=== PATIENT | female | born 2000 | race Caucasian/White ===

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

== ENCOUNTER 2023-02-18 11:36 | Outpatient (CLI) | payer OTHER, SELFPAY ==
[2023-02-18] MEDS: Inhaler, Assist Device 1 EACH MC (15:46)
[2023-02-18] MEDS: Albuterol HFA 18 GM 200 PUFF INH IH (15:46)
--- NOTE | 2023-02-26 14:17 | W.PFT ---
Date of service: 02/18/23 Time of Service: 14:44 Pulmonary Function Test Result Indications: Asthma Interpretation Spirometry: There is no airflow limitation. No bronchodilator response. Lung Volumes: There is air trapping and hyperinflation. Diffusion Capacity: Normal diffusion Airway Pressure: Normal airways resistance Impression No airflow obstruction but significant air trapping. This can be seen in asthma. Clinical Correlation therefore is recommended.
== END 2023-02-18 11:37 | disposition home or self-care (01) ==
PROVIDERS: Visit Provider Nurse Practitioner Family
DX: J45.30 Mild persistent asthma, uncomplicated (principal)
CPT/HCPCS: 94060; 94726; 94729

== ENCOUNTER 2023-12-27 11:03 | Outpatient (REF) | payer MEDICAID, SELFPAY ==
[2023-12-28 12:51] LABS: Chlamydia Result Negative (Negative); GC Result Negative (Negative)
== END 2023-12-27 11:04 | disposition home or self-care (01) ==
LOC: LBN 11:03
PROVIDERS: PCP Nurse Practitioner Women's Health; Visit Provider Nurse Practitioner Women's Health
DX: Z11.3 Encounter for screening for infections with a predominantly sexual mode of transmission (principal)
CPT/HCPCS: 87491; 87591

== ENCOUNTER 2024-01-11 12:47 | Emergency (ER) | payer MEDICAID, SELFPAY ==
[2024-01-11 12:58] VITALS: BP 117/88; PULSE 130; RESP 20; TEMP 37.3; O2SAT 99
[2024-01-11 13:01] VITALS: BP 117/88; PULSE 130; RESP 20; TEMP 37.3; O2SAT 99
[2024-01-11 13:46] VITALS: BP 115/53; PULSE 122; RESP 16; TEMP 38.6; O2SAT 100
[2024-01-11] MEDS: Ketorolac 30 MG/ML VIAL IM (13:59)
--- NOTE | 2024-01-11 14:02 | ED.GENADUL_ITS ---
Discharge Plan Disposition Patient Disposition: Home Condition: Good Discharge Details Clinical Impression: Pain in throat Primary Care Provider: Concepcion Mcnamara NP ED Provider: Tramaine Rincon Home Meds and New Rx's Prescriptions: New clindamycin HCl 150 mg capsule 450 mg PO QID 7 Days Qty: 84 0RF No Action albuterol sulfate 90 mcg/actuation HFA aerosol inhaler 2 puff inhalation Q4H PRN (Reason: shortness of breath or wheezing) Qty: 8.5 1RF (DME) Aerochamber MV Spacer See Rx Instructions .ROUTE .MEDSUPPLY Qty: 1 0RF Rx Instructions: As directed Discharge Instructions Instructions: Pharyngitis (ED) Additional Instructions: At this time your strep test is returned negative. We are pending a repeat culture. Gonorrhea, chlamydia, and mono are all negative. I am concerned that there is still a bacterial etiology causing the throat pain. There is no other abnormality that I can see at this time. Please take the antibiotic clindamycin as directed. Please take Tylenol Motrin as needed for pain. Make sure that you are taking a probiotic pill while on the antibiotic to prevent any diarrhea. If your symptoms are not improving over the next 72 hours, please return for reassessment. If you notice any worsening of your symptoms, or any new symptoms such as vomiting, diarrhea, fever, chills, shortness of breath, chest pain, numbness, weakness, or fainting , please return immediately to the emergency department for reevaluation. Please follow up with your primary care provider as soon as possible for reassessment and reevaluation. As always, it was a pleasure participating in your medical care today. Referrals: Concepcion Mcnamara NP [Primary Care Provider] - [facility] General Date/Time Provider Initiated Documentation: 01/11/24 13:04 . [facility] Narrative: This is a pleasant 23-year-old female with a past medical history of right bundle branch block, asthma, who presents today with sore throat. On the 15 of this month which was 2 weeks ago she had sore throat. She was seen and assessed at that time at an urgent care, amoxicillin was ordered, and she was treated with that. Her strep test at that time was negative, the strep culture was negative, gonorrhea and Chlamydia were negative, mono was negative. Patient states that she felt improved with the antibiotic, but as soon as that ended her pain returned. She also developed a mild fever with a Tmax of 102. Symptoms did slightly improve with NSAID therapy. She had mild pain with swallowing and drinking, but no difficulty doing this. No vomiting or diarrhea. No cough, no chest pain or urinary discomfort. No other complaints at this time. Patient does state that she is sexually active with her significant other who is male. She does perform oral sex. However she denies any personal history of STDs. She also states that her partner has not had any STDs. No other modifying factors. Related Data Home Medications Medication Instructions Recorded Confirmed inhalational spacing device #1 ea 12/08/19 01/11/24 (Aerochamber MV spacer) albuterol sulfate 90 mcg/actuation 2 puff inhalation Q4H PRN 07/16/22 01/11/24 aerosol inhaler shortness of breath or wheezing #8.5 grams clindamycin HCl 150 mg capsule 450 mg (3 x 150 mg) PO QID 7 days 01/11/24 #84 caps Previous Rx's Medication Instructions Recorded inhalational spacing device #1 ea 12/08/19 (Aerochamber MV spacer) albuterol sulfate 90 mcg/actuation 2 puff inhalation Q4H PRN 07/16/22 aerosol inhaler shortness of breath or wheezing #8.5 grams clindamycin HCl 150 mg capsule 450 mg (3 x 150 mg) PO QID 7 days 01/11/24 #84 caps Allergies Allergy/AdvReac Type Severity Reaction Status Date / Time lactose AdvReac Intermediate Other (See Verified 01/11/24 13:45 Comment) General Stated Complaint: Sorethroat ZAY: 3 Review of Systems All systems reviewed & are unremarkable except as noted in HPI and below Exam Narrative Exam Narrative: 1.Const: Well-nourished, Well-developed, appearing stated age 2.Eyes: PERRL, no conjunctival injection, and symmetrical lids. 3.ENT: Atraumatic external nose and ears. Moist MM. Neck: Symmetric, trachea midline, No thyromegaly. Tympanic membranes are fernandez and pearly bilaterally. Patient states that the worst pain is on the left however left tonsil is notably unremarkable, no exudate erythema vesicles or other abnormality. Right tonsil demonstrates minimal erythema, no enlargement. Few small purulent areas on the tonsil, no tonsillitis. No peritonsillar abscess on palpation. Uvula is midline. No evidence of hoarse voice. No tenderness on midline palpation of the cricoid cartilage or the thyroid cartilage. No mass or tracheal tenderness. No evidence of Ludewig's angina. Patient demonstrates good movement of cervical neck. There is no nuchal rigidity, no nuchal tenderness. Patient is able to flex the neck without any difficulty or significant pain. Negative Kernig's and Brudzinski sign. 4.CVS: +S1/S2, No murmurs or gallops. Peripheral pulses 2+ and equal in all extremities. Brisk capillary refill in all extremities. 5.RESP: Unlabored respiratory effort. Clear to auscultation bilaterally. No wheezes rales or rhonchi 6.GI: Soft, Nontender/Nondistended, No hepatosplenomegaly. No guarding or rebound. 7.MSK: Normocephalic/Atraumatic, Extremities w/o deformity or ttp No cyanosis or clubbing, Normal movement of all extremities 8.Skin: Warm, Dry. No rashes or lesions. 9.Neuro: inbound customer service representative II-XII grossly intact. Sensation grossly intact, no focal neurologic deficits. 10.Psych: (AAO) x3. Appropriate mood and affect Course Vital Signs Vital signs: Vital Signs Temperature 37.3 C 01/11/24 12:58 Pulse 130 H 01/11/24 12:58 Respiratory Rate 20 01/11/24 12:58 Blood Pressure 117/88 01/11/24 12:58 Pulse Oximetry 99 01/11/24 12:58 Temperature 38.6 C H 01/11/24 13:46 Temperature Source Oral 01/11/24 13:46 Pulse 122 H 01/11/24 13:46 Pulse Rhythm Regular 01/11/24 13:46 Pulse Strength Normal 01/11/24 13:46 Respiratory Rate 16 01/11/24 13:46 Respiratory Effort Normal 01/11/24 13:46 Respiratory Depth Normal 01/11/24 13:46 Respiratory Pattern Normal 01/11/24 13:46 Blood Pressure 115/53 L 01/11/24 13:46 Blood Pressure Mean 73 01/11/24 13:46 Blood Pressure Position Supine 01/11/24 13:46 Pulse Oximetry 100 01/11/24 13:46 Oxygen Delivery Method Room Air 01/11/24 13:46 Oxygen Flow Rate 0 01/11/24 13:46 Pain Level 7 01/11/24 13:46 Lab/Test Results Lab/Test Results: 01/11/24 13:58 Tonsil - Not Specified Group A Streptococcus Culture - Pending POC Strep Test-JIMY(Rapid) Start: 01/11/24 13:09 Freq: .Rapid Strep Test Status: Active Protocol: Document 01/11/24 13:43 OBIE (Rec: 01/11/24 13:43 N.[facility] [id number]) Strep test-JIMY(Rapid)-POC POC-Strep test-JIMY (Rapid) Negative POC Strep Test-JIMY(Rapid) Start: 01/11/24 13:10 Freq: .Rapid Strep Test Status: Active Protocol: Document 01/11/24 13:43 OBIE (Rec: 01/11/24 13:43 N.[facility] [place] [id number]) Strep test-JIMY(Rapid)-POC POC-Strep test-JIMY (Rapid) Negative POC-Strep test-JIMY (Rapid) Negative Medical Decision Making This is a pleasant 23-year-old female with a past medical history of right bundle branch block, asthma, who presents today with sore throat. On the 15th of this month which was 2 weeks ago she had sore throat. She was seen and assessed at that time at an urgent care, amoxicillin was ordered, and she was treated with that. Her strep test at that time was negative, the strep culture was negative, gonorrhea and Chlamydia were negative, mono was negative. Patient states that she felt improved with the antibiotic, but as soon as that ended her pain returned. She also developed a mild fever with a Tmax of 102. Symptoms did slightly improve with NSAID therapy. She had mild pain with swallowing and drinking, but no difficulty doing this. No vomiting or diarrhea. No cough, no chest pain or urinary discomfort. No other complaints at this time. Patient does state that she is sexually active with her significant other who is male. She does perform oral sex. However she denies any personal history of STDs. She also states that her partner has not had any STDs. No other modifying factors. Exam demonstrates tympanic membranes are fernandez and pearly bilaterally. Patient states that the worst pain is on the left however left tonsil is notably unremarkable, no exudate erythema vesicles or other abnormality. Right tonsil demonstrates minimal erythema, no enlargement. Few small purulent areas on the tonsil, no tonsillitis. No peritonsillar abscess on palpation. Uvula is midline. No evidence of hoarse voice. No tenderness on midline palpation of the cricoid cartilage or the thyroid cartilage. No mass or tracheal tenderness. No evidence of Ludewig's angina. Strep test was performed and is also negative again. There is no vesicles to suggest herpes. Previous testing appeared very appropriate. No mass or other abnormality to suggest need for CT imaging at this time. Differential includes atypical bacterial agent that caused the initial and continued infection especially considering the mild improvement with antibiotics, versus secondary infection happened after initial check. Symptoms do not appear consistent with purulent gonorrhea tonsillitis or purulent chlamydial tonsillitis. Again no evidence to suggest herpes. No evidence of Ludewig's angina. I did discuss with the patient and offer IV and fluids, but the patient has declined at this time. Patient appears notably stable otherwise. No evidence of cancer or mass otherwise or other concerning abnormality, and no signs of septic shock I do feel the patient is stable for discharge with close follow-up. She will drink fluids at home. We will give Toradol here prior to discharge. Will start her on a new antibiotic prescription for clindamycin which will give broad oral coverage for potential causative agent causing the tonsillar irritation. However I did recommend that if she does not have improvement of her symptoms after 72 hours then she should return for immediate reassessment and further workup and potential IV assessment. No evidence at this time to suggest herpangina/rtgt-dzko-mce-mouth. Discussed red flags which to return. I have extensively reviewed the treatment plan and discharge instructions with the patient and their family. I have addressed all patient concerns at this time. The patient and family was made aware of what symptoms to monitor for that would warrant a return to the emergency department. Discussed the plan with the patient and family, they demonstrate verbal understanding and agreement with our assessment and plan at this time. The documentation in this chart was dictated using [employer] dictation software. Please excuse any dictation errors. Quality:SDOH Health Related Social Needs: No Data to Display PFSH All Active Problems Pain in throat (Acute) Abdominal discomfort (Acute) Anxiety (Chronic) Seasonal and perennial allergic rhinitis (Acute) Mild intermittent asthma (Chronic) Right bundle branch block (RBBB) determined by electrocardiography (Chronic) had eval with [facility]- no medication, no activity restriction; follow up as needed Scoliosis (Chronic 08/25/17) Seen by uvm 08/29. Minimal risk of progression. f/u in 1 year Surgical History Plica, left knee Family History Father Essential hypertension just had stent placed Asthma untreated Mother Alcohol abuse Depression Other Lupus (systemic lupus erythematosus) MGaunt Diabetes MGaunt, MGGM Essential hypertension PGF Depression MGM, MGaunt Heart disease PGF, MGF Neoplasm both sides Brother Depression has symptoms of bipolar but never dx Other Healthy adult on routine physical examination Social History Smoking/Tobacco Use Status: Never Smoking risk assessment performed?: Yes Alcohol Intake: never Drug use: Never Substance use type: does not use Household members: family Education Level: college Details: Sophomore [employer] 2021 studying Visual Arts and living at home Do you need help understanding health information?: Never Pets and animals: Yes Pets and animals: cat(s) and farm animals Sexually active: Yes Do you think of yourself as: straight/heterosexual Current gender identity: female Seatbelt use: always Helmet use: Yes Drive intox or ride w/intox flatbed driver: No Do you feel safe at home: Yes Do you feel safe in your relationship?: Yes Additional Social history: Working at [employer] Female Reproductive History Menstrual control method: none (Patient stats she is not sexually active ) History History 0 Para Hx # Term Pregnancies Multiple births Hx # Pregnancies Ectopic pregnancies AB induced Hx Number of Living Children AB spontaneous PAWSS Have you Been Recently Intoxicated or Drunk Within the Last 30 days?: No Have you Ever Experienced Previous Episodes of Alcohol Withdrawal?: No Have you ever Experienced Withdrawal Seizures?: No Have you ever Experienced Delirium Tremens(DT)s?: No Have you ever undergone Alcohol Rehabilitation Treatment (i.e, inpt ot outpatient treatment programs)?: No Have you ever Experienced Blackouts?: No Have you ever Combined Alcohol with other Downers within the last 90 days?: No Have you ever Combined Alcohol with any other Substance of Abuse during the last 90 days?: No Positive Blood Alcohol level on Presentation? [PCS.BAL]: No Evidence of Increased Autonomic Activity (i.e. HR>120, tremor, sweating, agitation, nausea)?: No Result: 0
[2024-01-11 14:26] VITALS: PULSE 114; RESP 16; TEMP 38.6; O2SAT 100
== END 2024-01-11 14:31 | disposition home or self-care (01) ==
PROVIDERS: Emergency Provider Student in an Organized Health Care Education/Training Program; PCP Nurse Practitioner Women's Health
DX: J02.9 Acute pharyngitis, unspecified (principal)
CPT/HCPCS: 87880; 99283; 87081; J1885

== ENCOUNTER 2024-01-11 14:43 | Outpatient (REF) | payer MEDICAID, SELFPAY ==
[2024-01-12 14:14] LABS: Chlamydia Result Negative (Negative); GC Result Negative (Negative)
== END 2024-01-11 14:44 | disposition home or self-care (01) ==
LOC: LBN 14:43
PROVIDERS: PCP Nurse Practitioner Women's Health; Visit Provider Physician Assistant
DX: J02.9 Acute pharyngitis, unspecified (principal)
CPT/HCPCS: 87491; 87591; 87070

== ENCOUNTER 2024-01-24 09:10 | Outpatient (REF) | payer MEDICAID, SELFPAY ==
--- NOTE | 2024-01-24 08:50 | PAPFT_PTH ---
PATIENT: Miryam Lozano LOC: [facility] U#:[id number] AGE/SX: 23/F ROOM: RE01/24/[address]: Concepcion Mcnamara NP : 2000 BED: DIS: 01/24/2024 SPEC #: [id number] RECD: 01/24/24 13:09 STATUS: EDWIN SAUNDERS #: [id number] KADI: 01/24/24 08:[address]: Concepcion Mcnamara NP DEPT: [facility] Cytology RECD BY: Annette Barfield Tissues: 1 - CX/ENDOCX FOR PAP SMEARS Procedures: PAP THIN PREP/[facility] Screening Comments: [id number] (CHLAMYDIA/GC)
[2024-01-25 15:37] LABS: Chlamydia Result Negative (Negative); GC Result Negative (Negative)
== END 2024-01-24 09:11 | disposition home or self-care (01) ==
LOC: LBN 09:10
PROVIDERS: PCP Nurse Practitioner Women's Health; Visit Provider Nurse Practitioner Women's Health
DX: Z12.4 Encounter for screening for malignant neoplasm of cervix (principal)
CPT/HCPCS: 87491; 87591; 88142

== ENCOUNTER 2024-02-10 18:17 | Outpatient (REF) | payer MEDICAID, SELFPAY ==
[2024-02-10 21:04] LABS: Abs Immature Grans 0.02 10^3/uL (0.0-0.06); Absolute Basophil Count 0.08 10^3/uL (0.0-0.2); Absolute Eosinophil Count 0.11 10^3/uL (0.0-0.7); Absolute Lymphocyte Count 1.71 10^3/uL (1.2-3.4); Absolute Monocyte Count 0.58 10^3/uL (0.1-0.8); Absolute Neutrophil Count 5.07 10^3/uL (1.2-6.7); Basophils % 1.1 %; Eosinophils % 1.5 %; HCT 37.4 % (36.0-46.0); HGB 12.7 g/dL (11.2-15.7); Immature Grans % 0.3 %; Lymphocytes % 22.6 %; MCH 28.2 pg (27.0-33.0); MCV 83 fL (80-95); MPV 10.3 fL (8.0-11.0); Monocytes % 7.7 %; Neutrophils % 66.8 %; Platelet Count 364 10^3/uL (130-400); RBC 4.51 10^6/uL (3.93-5.22); RDW 12.7 % (11.7-14.6); RDW-SD 38.7 fL; WBC 7.57 10^3/uL (4.4-10.8)
[2024-02-10 21:27] LABS: ALT 19 U/L (14-59); AST 17 U/L (15-37); Albumin 3.9 g/dL (3.4-5.0); Alkaline Phosphatase 72 U/L (46-116); BUN 10 mg/dL (7-18); Bilirubin, Total 0.6 mg/dL (0.2-1.0); CREATININE 0.9 mg/dL (0.55-1.02); Calcium 9.5 mg/dL (8.5-10.1); Chloride 103 mmol/L (98-107); Estimated GFR 93.28 (mL/min/1.73m2); Glucose 93 mg/dL (74-106); Potassium 3.9 mmol/L (3.5-5.1); Sodium 140 mmol/L (136-145); TSH (W/Ref FT4) 0.92 uIU/mL (0.36-3.74); Total Protein 7.8 g/dL (6.4-8.2)
== END 2024-02-10 18:18 | disposition home or self-care (01) ==
LOC: NCHCN 18:17
PROVIDERS: PCP Nurse Practitioner Women's Health; Visit Provider Nurse Practitioner Family
DX: J03.91 Acute recurrent tonsillitis, unspecified (principal)
CPT/HCPCS: 80053; 84443; 85025; 87070

== ENCOUNTER 2024-09-20 11:34 | Outpatient (REF) | payer MEDICAID, SELFPAY | END 2024-09-20 11:35 | disposition home or self-care (01) | LOC: LBN 11:34 | PROVIDERS: PCP Nurse Practitioner Family; Visit Provider Nurse Practitioner Family | DX: J02.9 Acute pharyngitis, unspecified (principal); R68.89 Other general symptoms and signs; J03.90 Acute tonsillitis, unspecified | CPT/HCPCS: 87070 ==

== ENCOUNTER 2024-10-20 20:25 | Outpatient (REF) | payer MEDICAID, SELFPAY ==
--- OUTSIDE RECORDS SUMMARY | 2024-10-20 20:27 | XMS_ITS | Encounter Summary ---
Author Organization [facility] Address [address] [place] [address] Care Team Providers Care Vegetable Farm Manager Name Role Phone Saumya Cardozo MD, Roxie Primary Care Provider [phone] Reason for Visit * Reason Onset Date Comments Scoliosis 02/09/2018 Encounter Details Date Type Department Care Team (Late st Contact Info) Description 02/09/2018 Orders Only [facility] - [address] [address] Garret Rankin MD [address] [facility] [place] [address] Scoliosis (and kyphoscoliosis), idiopathic (Primary Dx) Social History Tobacco Use Types Packs/Day Years Used Date Smoking Tobacco: Never Smokeless Tobacco: Never Comments Unknown Sex and Gender Information Value Date Recorded Sex Assigned at Not on file Legal Sex Female 13:35 EDT Gender Identity Not on file Sexual Orientation Not on file documented as of this encounter Functional Status * Because of a physical, mental, or emotional condition, does this person have difficulty doing errands alone such as visiting a doctor's office or shopping? Answer Date of Assessment Author No 03/08/2017 13:44 EDT documented as of this encounter Mental Status * Because of a physical, mental, or emotional condition, does this person have serious difficulty concentrating, remembering, or making decisions? Answer Entry Date Author Yes 03/08/2017 13:44 EDT documented in this encounter Plan of Treatment Not on file documented as of this encounter Procedures Procedure Name Priority Date/Time Associated Diagnosis Comments ENTIRE SPINE 1 VIEW Routine 02/18/2018 1 3:20 EDT Scoliosis (and kyphoscoliosis), idiopathic documented in this encounter Results * ENTIRE SPINE 1 VIEW (02/18/2018 13:20 EDT) Anatomical Region Laterality Modality Other 02/18/2018 13:2 0 EDT 02/18/2018 14:24 EDT Narrative 02/18/2018 14:24 EDT ENTIRE SPINE 1 VIEW ??02/18/2018 1:20 PM Signs and Symptoms/Comments: ?? M41.20-Other idiopathic scoliosis, site [id number]; scoliosis Findings: PA upright radiograph of entire spine again demonstrates S-shaped thoracolumbar scoliosis, visibly similar to the prior examination 08/29. The iliac crest apophysis is partially ossified. The hips are well formed. The lungs are clear and the heart is normal in size. IMPRESSION: Scoliosis. Procedure Note Goran Azul MD - 02/18/2018 ENTIRE SPINE 1 VIEW 02/18/2018 1:20 PM Signs and Symptoms/Comments: M41.20-Other idiopathic scoliosis, site [id number]; scoliosis Findings: PA upright radiograph of entire spine again demonstrates S-shaped thoracolumbar scoliosis, visibly similar to the prior examination 08/29. The iliac crest apophysis is partially ossified. The hips are well formed. The lungs are clear and the heart is normal in size. IMPRESSION: Scoliosis. Garret Rankin MD IMG DIAGNOSTIC IMAGING O RDERABLES Final Result documented in this encounter Visit Diagnoses Diagnosis Scoliosis (and kyphoscoliosis), idiopathic- Primary documented in this encounter Care Teams Vegetable Farm Manager Relationship Specialty Start Date End Date Roxie Kerns MD [address] [place] [address] PCP - General 03/05/17 documented as of this encounter
--- OUTSIDE RECORDS SUMMARY | 2024-10-20 20:27 | XMS_ITS | Encounter Summary ---
[place] [address] Care Team Providers Care Gang Miner Name Role Phone Roxie Kerns MD Primary Care Provider [phone] Reason for Visit * Consultation (Routine) - Closed Specialty Diagnoses / Procedures Referred By Contac t Referred To Contact Otolaryngology Diagnoses Recurrent acute tonsillitis Polyp of right nasal cavity Luisa Crain, HALL WORKER [address] [place] [address] [facility] Otolaryngology [address] [place] [id number] Referral ID Status Reason Start Date Expiration Date V isits Requested Visits Authorized [id number] Closed Consult, Test & Treat 02/21/2024 02/20/2025 1 1 Encounter Details Date Type Department Care Team (Late st Contact Info) Description 04/05/2024 11:40 AM EDT Office [place] [address] Gaby Sanchez MD [facility] [place] [address] Chronic tonsillitis Social History Tobacco Use Types Packs/Day Years Used Date Smoking Tobacco: Never Smokeless Tobacco: Never Comments:No smokers in the h ouse Sex and Gender Information Value Date Recorded Sex Assigned at Not on file Gender Identity Not on file Sexual Orientation Not on file documented as of this encounter Last Filed Vital Signs Vital Sign Reading Time Taken Comments Blood Pressure - - Pulse - - Temperature - - Respiratory Rate - - Oxygen Saturation - - Inhaled Oxygen Concentration - - Weight 59 kg (130 lb) 04/05/2024 11:57 AM EDT Height 167.6 cm (5' 6) 04/05/2024 11:57 AM EDT Body Mass Index 20.98 04/05/2024 11:57 AM EDT documented in this encounter Progress Notes * Gaby Sanchez MD - 04/05/2024 11:40 AM EDT [facility] Otolaryngology - Head and Neck Surgery Gaby Sanchez MD 04/05/24 12:09 PM [place], [place] [address] Office Patient Name: Miryam Lozano Date of : 2000 PCP: Roxie Kerns MD Chief Complaint/ History of Present Illness: Miryam Lozano is a 23 y.o. year old who was seen today at the request of Luisa Crain in consultation for recurrent tonsillitis. History was obtained from the patient as well as information from chartreview. Patient had a sick episode in December, she noted a sore throat at the time. Since then she has had 3 more episodes, all treated with antibiotics and with slow but steady improvement. Other than this time period she does not have recurrent tonsillitis or other problems with her throat. She has a h/o allergies and was on flonase and PO allergy meds. 10 point Review of Systems was normal except for pertinent positives and negatives included in the History of Present Illness. Past Medical and Surgical History Patient Active Problem List Diagnosis Code Viral warts B07.9 Intermittent asthma J45.20 Migraine headache G43.909 Scoliosis M41.9 Chronic pain of left knee M25.562, G89.29 Current Outpatient Medications on File Prior to Visit Medication Sig Dispense Refill omeprazole (PRILOSEC OTC) 20 mg Tablet, Delayed Release (E.C.) Take 1 tablet by mouth daily. albuterol (PROAIR HFA) 90 mcg/actuation HFA Aerosol Inhaler Every 4 hours, as needed No current facility-administered medications on file prior to visit. Allergies: Lactose Surgical History: No past surgical history on file. Family and Social History Family History: No family history on file. Social History: Lives in [place] [address] Social History Socioeconomic History Marital status: Single Spouse name: Not on file Number of children: Not on file Years of education: Not on file Highest education level: Not on file Occupational History Not on file Tobacco Use Smoking status: Never Smokeless tobacco: Never Tobacco comments: No smokers in the house Vaping Use Vaping status: Never Used Substance and Sexual Activity Alcohol use: Not on file Drug use: Not on file Sexual activity: Not on file Other Topics Concern Not on file Social History Narrative Not on file Social Determinants of Health Financial Resource Strain: Not on file Food Insecurity: Not on file Transportation Needs: Not on file Physical Activity: Not on file Intimate Partner Violence: Not on file Housing Stability: Not on file Physical Exam Temperature: Heart Rate: Blood Pressure: Respiratory Rate: SpO2: General: Awake, alert, and oriented to person, place and time. No acute distress. Head and Face: Head is normocephalic, atraumatic. Facial resting tone symmetric. Eyes: Conjugate gaze, ocular motility intact bilaterally. PERRL. Neurologic: Cranial Nerves II-XII grossly intact and symmetric. Ears: External ear and ear canal are without deformity. Hearing is grossly normal. Nose: External nose is midline without deformity or lesion. Anterior rhinoscopy reveals a straight septum, healthy mucosa, turbinates normal in size. Oral: There are no visible or palpable buccal, gingival, lingual, or palatal lesions. The floor of mouth is soft and flat. Oropharynx: Symmetric without tonsillar pathology. Tonsils 2+ and cryptic, some cobblestoning notedalong the posterior pharyngeal wall. No other concerning lesions or masses Larynx: No stridor, no hoarseness. External laryngeal structures normal to palpation. Face and sinuses are non tender. Salivary glands are soft, non tender, without palpable masses. No temporomandibular joint grinding or locking. Neck: Symmetric. No scars, palpable masses, or crepitus. Midline trachea. Thyroid normal in size, non tender, no palpable mass. Lymphatic: no palpable cervical lymphadenopathy. Pulmonary: Breathing comfortably. Symmetric chest expansion without use of accessory muscles or retraction. Skin: Good skin turgor, no pallor, no icterus. Extremities: No gross deformities, no peripheral edema. Labs and Imaging Significant lab values are as follows: I reviewed the following imaging studies: Procedures ASSESSMENT & RECOMMENDATIONS Miryam Lozano is a 23 y.o. with chronic tonsillitis for the last 3 months. Recommendations: We reviewed criteria for tonsillectomy, she is not quite meeting them at the moment. We discussed treatment options for tonsillectomy including longer courses of antibiotics and steroids. She has opted for watchful waiting for now as overall her symptoms are improving. F/u with otolaryngology prn. Gaby Sanchez MD Otolaryngology - Head and Neck Surgery 04/05/24 12:09 PM documented in this encounter Plan of Treatment Scheduled Referrals Name Type Priority Associated Diagnoses Orde r Schedule Referral to ENT Outpatient Referral Routine Recurrent acute tonsillitis Polyp of right nasal cavity Ordered: 02/21/2024 documented as of this encounter Visit Diagnoses Diagnosis Chronic tonsillitis documented in this encounter Care Teams Gang Miner Relationship Specialty Start Date End Date Roxie Kerns MD [address] [place] [address] [place] [address] PCP - General Pediatrics 10/08/16 documented as of this encounter
--- OUTSIDE RECORDS SUMMARY | 2024-10-20 20:27 | XMS_ITS | Encounter Summary ---
Author Organization [facility] Address [address] [place] [address] Care Team Providers Care Butcher Or Smallgoods Maker Name Role Phone Saumya Cardozo MD, Roxie Primary Care Provider [phone] Reason for Visit * Reason Comments New Patient Visit concussion * Consult (Routine) - Closed Specialty Diagnoses / Procedures Referred By Flor de la vega Referred To Contact Pediatric Neurology Diagnoses Concussion Roxie Kerns MD [address] [place] [phone] Phone: tel: fax: Provider, Pedi-Neuro Referral ID Status Reason Start Date Expiration Date Visits Re quested Visits Authorized [id number] Closed 1 1 Encounter Details Date Type Department Care Team (Late st Contact Info) Description 03/08/2017 13:45 EDT Office Visit [facility] Pediatric Neurology - Main [address] [address] Gosia Lo MD [address] [place] [address] Post concussion syndrome (Primary Dx); Migraine without aura and without status migrainosus, not intractable Social History Tobacco Use Types Packs/Day Years Used Date Smoking Tobacco: Never Assessed Comments Unknown Sex and Gender Information Value Date Recorded Sex Assigned at Not on file Legal Sex Female 13:35 EDT Gender Identity Not on file Sexual Orientation Not on file documented as of this encounter Last Filed Vital Signs Vital Sign Reading Time Taken Comments Blood Pressure 122/68 03/08/2017 1344 EDT Pulse 60 03/08/2017 1344 EDT Temperature - - Respiratory Rate - - Oxygen Saturation - - Inhaled Oxygen Concentration - - Weight 47.2 kg (104 lb) 03/08/2017 1344 EDT Height 166.4 cm (5' 5.5) 03/08/2017 1344 EDT Body Mass Index 17.04 03/08/2017 1344 EDT Body Mass Index Percentile 14.75% 03/08/2017 134 4 EDT Growth Chart: [facility] (Girls, 2- 20 Years) documented in this encounter Functional Status * Because of [...] 03/08/2017 13:44 EDT documented in this encounter Patient Instructions * Patient Instructions* Gosia Lo MD - 03/08/2017 13:45 EDT Riboflavin (Vitamin B2) 200 mg daily for 8 weeks and then increase to 400 mg as needed after that. [facility] Patient Instructions Migraine Headaches in Children: Care Instructions Your Care Instructions Migraines are severe, throbbing headaches that usually occur on one side of the head, but they can move from side to side or affect both sides. They often occur with nausea, vomiting, and extreme sensitivity to light, noise, and smells. Changes in vision such as flashing lights or dark spots may happen before the headache. Kids get migraine headaches too. Migraine headaches often run in families. Migraine headaches can be caused--or triggered--by a variety of things. This can include certain foods (chocolate, cheese,fast food) or odors, smoke, bright light, stress, dehydration, hunger, or lack of sleep. Without treatment, your child's migraine headache can last 4 to 72 hours. For most children, migraine headaches return from time to time. Home treatment can help reduce how often and how uncomfortable the migraine headaches are. Follow-up care is a loyd part of your child's treatment and safety. Be sure to make and go to all appointments, and call your doctor if your child is having problems. It's also a good idea to know your child's test results and keep a list of the medicines your child takes. How can you care for your child at home? ?? Begin home treatment at the first sign of a migraine. Your child should go to a quiet, dark place and relax. Most headaches will go away after rest or sleep. ?? Let your child know that watching TV or reading while he or she has a headache can make the headache worse. ?? If your doctor has prescribed medicine to stop your child's migraines, have your child take it at the first sign of a migraine. This can help stop the headache before it gets worse. If your doctorhas prescribed medicine to be taken daily, make sure that your child takes it every day even if he or she does not have a headache. ?? If your doctor has not prescribed medicine for your child's migraines, give your child a pain reliever, such as children's acetaminophen or ibuprofen. Be safe with medicines. Read and follow all instructions on the label. ?? Put a cold, moist cloth or ice pack on the part of the head that hurts. Put a thin cloth betweenthe ice and your child's skin. Do not use heat--it can make the pain worse. ?? Gently massage your child's neck and shoulders. ?? Do not ignore new symptoms that occur with a headache, such as a fever, weakness or numbness, vision changes, or confusion. These may be signs of a more serious problem. To prevent migraine headaches: ?? Keep a headache diary so that you can figure out what triggers your child's headaches. Record when each headache begins, how long it lasts, where it hurts, and what the pain is like (throbbing, aching, stabbing, or dull). Write down any other symptoms your child has with the headache, such as nausea, flashing lights or dark spots, or sensitivity to bright light or loud noise. List anything that might have triggered the headache. When you know what things trigger your child's headaches, try to avoid them. ?? Make sure that your child drinks 4 to 8 glasses of fluid a day. Avoid drinks that have caffeine.Many popular soda drinks contain caffeine. ?? Make sure that your child gets plenty of sleep. Most children need to sleep 8 to 10 hours each night. ?? Encourage your child to get plenty of exercise. ?? Make sure that your child does not skip meals. Provide regular, healthy meals. ?? Keep your child away from smoke. Do not smoke or let anyone else smoke around your child or in your house. ?? Find healthy ways to deal with stress. Do not overbook your child's time. ?? Seek help if you think your child may be depressed or anxious. Treating these problems may reduce the number of migraines your child has. ?? Limit the amount of time your child spends in front of the TV and computer. When should you call for help? Call your doctor now or seek immediate medical care if: ?? Your child has a very painful, sudden headache that is unlike any he or she has had before. ?? Your child has a fever with a stiff neck. ?? Your child has a headache with sudden weakness, numbness, inability to move parts of his or her body, visual problems, slurred speech, confusion, or behavior changes. ?? Your child has headaches after a recent fall or blow to the head. Watch closely for changes in your child's health, and be sure to contact your doctor if: ?? Your child's headaches become more painful or frequent. ?? Your child's headache does not go away as expected. Where can you learn more? Go to [email or web address] or log into your [employer] account at [email or web address]. Enter J120 in the search box to learn more about Migraine Headaches in Children: Care Instructions. Current as of: June 26, 2016 Content Version: 11.2 ?? [id number] [employer]. Care instructions adapted under license by [facility] If you have questions about a medical condition or this instruction, always ask your healthcare professional. [employer] disclaims any warranty or liability foryour use of this information. documented in this encounter Progress Notes * Gosia Lo MD - 03/08/2017 6744 EDT Miryam Lozano 16 y.o. female Chief Complaint Patient presents with ??? New Patient Visit concussion History of Presenting Illness: Miryam is a 16-year-old female who presents to clinic today for assessment of post concussion syndrome and ongoing headaches. She attends clinic today with her mother and father. Miryam was first diagnosed with migraine headaches about 5 years ago. She described her migraines since right sided/temporal, pulsating headaches that are moderate to severe. The typically last a few hours. They are associated with nausea and vomiting, as well as photophobia and phonophobia. She feels that they get worse with activities and they are improved with Excedrin and napping. She typically has her migraine headaches 1-2 times per week, often at school with the onset around 11 AM. She says they tend to be triggered by loud noises,stress/societal pressure , and activities which require to concentrate at school. Although she has not identified interrupted sleep, skipping meals and dehydration as triggers, they clearly are according to the history. Miryam typically goes to bed with heriPhone and will be on the iPhone until 11:30 or even 12:00. She then sleeps with her iPhone in the room. She routinely skips both breakfast and lunch on school days, and her first food and/or fluid usually occurs after school around 4 PM. She has never been on a prophylactic medication. She typically takes Excedrin for her migraines and sleeps. She has never experienced an aura with her headaches. Miryam had a concussion in October 2016. This was her first concussion. She was apparently on a tinroofed building that was covered in snow, wind she slipped and fell onto her left side face. Apparently her teeth ground into the tin roof and she actually had some deposit of metallic substance on her teeth. She did not lose consciousness. She did not follow off the roof. Immediately after this occurred she felt dizzy, fatigue, nausea and she developed a headache. She says the headache was typical to her migraine but much more severe. Due to the symptoms they went to the ED about 6 hours laterwhere she was diagnosed with a concussion. These acute concussion symptoms lasted several weeks and then perhaps improved somewhat according to Miryam, although mother is uncertain whether they ever really improved. Regardless towards the end of November she started to have an increase of her symptoms again. Should be stated that after the concussion she was out of school for 2 weeks, the first week being due to the concussion symptoms and the second week due to a school vacation. She was off basketball for the month of October, but did play in a few noncompetitive gaits in early November. She did not feel that basketball worsened her symptoms. It was towards the end of November that they started to become concerned as she was having ongoing symptoms and at that point they asked for the referral to clinic here. At the present time Miryam's ongoing symptoms include dizziness, nausea/hunger, memory loss, difficulties in school, and headaches. The dizziness she describes as a sensation that her body and head or tilting to the left and a sensation that she is spinning. She does not feel that the room is spinning. She is not off balance and has had no difficulty with her activities. The nausea she says only occurs in the morning upon waking up and she is uncertain if it is nausea or hunger. Typically she does not eat breakfast and does not eat lunch, and later in the afternoon it becomes clear that she is hungry and therefore she will eat a snack and supper. The memory loss she states is misplacing her school bag, losing her ear buds, and being uncertain as to what the day of the weekends. Many of her examples of memory difficulties [place] around losing items either at home or at school. When asked further it seems that both mother and father feel that Miryam always had this tendency to misplace items, however it is perhaps a little bit more noticeable since the concussion though they recognize that it may be that they are paying more attention to the symptoms. The difficulty in her schooling is in the isolated situation of math testing. Apparently all of herother school smith are normal, but she did have some difficulty in math testing such that she got the answers correct on pen and paper but had difficulty when filling out the computer answer forms. This is particularly concerning to her as she is attending a private school next year with higher academic requirements. The headaches she is experiencing are consistent with her migraines in character, but they are moresevere and more frequent. She has been experiencing 4-5 headaches per week over the last several months. She is increased her use of Excedrin and is taking perhaps 3-4 a week if not more. She memurss10 per month would be average. Otherwise she has been experiencing no new symptoms. Her weight has been stable. Her menstrual cycles are regular. She does not feel her headaches are associated with her menstrual cycles, however her mother wondered. Her mother also wondered if some of her nausea was associated with menstrual cramps. Review of Systems: A complete review of systems was done and all positives are noted in the HPI above. Pertinent negatives are also noted. All remaining are negative. Medications: No current outpatient prescriptions on file. No current facility-administered medications for this visit. Side Effects: n/a Allergies: No Known Allergies Immunizations: Up-to-Date. & History: is unremarkable. Mother was 41 and a smoker. She was born via spontaneous vaginal delivery at term. She had a normal course. Developmental History: Her early developmental milestones were all reached appropriately. Past Medical History: Past Medical History: Diagnosis Date ??? Migraines Since ~2011 She had a left knee surgery several years back, during which time she was diagnosed with a right bundle branch block. She was apparently seen by cardiology with no follow-up recommended. Family History: History reviewed. No pertinent family history. There is no family history of headaches and/or migraines. Social History: Miryam lives with her parents. Physical Examination: General: Miryam is a bright and cooperative, in no obvious distress. She does not have a headache today. She had a somewhat flat affect. Vital Signs: Vitals: 03/08/17 1344 BP: 122/68 Pulse: 60 Weight: 47.2 kg (104 lb) Height: 166.4 cm (65.5) Neurological Examination: Head Circumference: 53.5 cm. Cognitive: Miryam is able to follow multi-step commands. She is oriented to place, person and time. She was able to give a good history. Cranial Nerves: CN 1 was not tested. ZANE. Visual rivera are full. Blind spot testing was normal. Visual acuity is 20/20 -2 on the left and 20/25 on the right to bedside testing. EOM are full, with no nystagmus. Facial sensation and muscles of mastication are normal. Facial muscle movements are normal. CN 8 screening is normal. The palate rises symmetrically and there are no problems swallowing.Tongue sensation was not tested. SCM and trapezius function are normal. Tongue movements are normal. Fundoscopy: Normal examination, with no evidence of increase ICP. Venous pulsations were present. Motor: Muscle tone is normal in the upper and lower extremities. Strength testing was normal in theupper and lower extremities. There is no pronator drift. Deep Tendon Reflexes: DTRs are normal and symmetric in the upper and lower extremities, with no clonus and down-going plantars bilaterally. Sensory: Sensory screening examination for light-touch, temperature (cold only), and vibration is normal in the upper and lower extremities. Romberg is negative. Coordination: Cerebellar testing including zkeaej-lu-hvkl and rapid alternating movements is normal. Gait: Her gait is normal. Heel & toe walking are normal. Tandem gait is normal. Neurocutaneous Examination: There were no skin markings suggestive of a neurocutaneous syndrome. Systemic Examination: Cardiac: Heart sounds normal with regular rhythm, and no audible murmur. Respiratory: Clear to auscultation. Assessment: Miryam is a 16-year-old who presents with increasing headaches and other symptoms following a concussion in October 2016. Although I feel that some of her symptoms could be in keeping with postconcussion syndrome, she is out of the typical time frame during which we see resolution. That said there is about 10- 15% [if not more] of patients with postconcussion syndrome will go on to develop chronicsymptoms. At this point I think a clear contributing factor for Miryam is lifestyle. In particular her disrupted sleep [given her iPhone use], stress/pressures at school, and most significantly at feel her lack of adequate nutrition and hydration. These are all known triggers for migraine headaches and I think could also be contributing to some of her other symptoms such as dizziness and a sensation of nausea/hunger. As for the memory loss/difficulty in school, I think that the symptoms are hardto tie down at this point. The memory loss seems to be isolated to misplacing things, which may be her baseline that is now just more of a focus after the concussion. Her isolated difficulty with math testing in school is also something that I have a hard time explaining, given her other schooling was all within her normal capabilities. I do think that her ongoing headaches are more in keeping with an exacerbation of her migraines, rather than part of the postconcussion syndrome. There may alsobe a component of medication overuse headache given that she has been taking at least 12 rescue doses a month for the last several months. She clearly has many triggers for migraine headaches. As for the management postconcussion syndrome [again unclear if this is the primary issue], I did speak about a referral to physical therapy/occupational therapy. I also think that it would be important for Miryam to have educational and psychological testing done in school next year, should she continue to have difficulties. I also discussed pediatric migraine headache and I also gave Miryam a handout on the topic. The mostcommon triggers I see in pediatric migraine are poor sleep hygiene, skipping meals, dehydration and, most significantly, stress/anxiety/depression. The basic and most important intervention in migraine headaches is avoiding and/or managing triggers as best possible. We discussed lifestyle modification at length, as I think this is very important for Miryam. We discussed the approach to medicationsincluding both rescue medications and prophylactic medications. Miryam's rescue Excedrin is a reasonable choice should she find it beneficial, but it should be limited to 2-3 does per week given the risk of medication overuse/reboudn headaches. I typically recommended prophylactic medications once rescue medication is needed 2+ times a week routinely, and so I think this is a reasonable time for Miryam to start. I start with riboflavin [vitamin B2], which has been shown to be effective in pediatric migraine at a dose range of 200-400 mg a day. By effective I mean a 50% reduction in frequency and/or severity of headaches. This benefit does not occur in all children, so I recommended that they try 200 mg daily for 8 weeks and then increase to 400 mg after that. If there is no benefit after 8 weeks of 400 mg daily, the vitamin can be stopped. Often I find this vitamin can be beneficial during the school year and then not taken in the summer. The other aspect is that they should try to limit the use of Excedrin to 2-3 does a week maximum (understanably some weeks will be worse than others). After a lengthy discussion it was decided with Miryam and her parents that they would focus on lightsome modification and try the riboflavin over the summer, and we will put the referral to physical therapy/occupational therapy on hold at this time. Plan: I will follow up with Miryam at the end of May once she has started back into school, or earlyas needed. I will be available for any new or worsening symptoms or for any questions or concerns the family may have. I spent 60 minutes in a face to face encounter with patient, more than half of which was spent on education and counseling regarding the above mentioned issues. Gosia Lo MD 03/08/2017 16:49 *Please note this dictation was prepared with voice recognition software and, thus, errors may occur. documented in this encounter Plan of Treatment Not on file documented as of this encounter Visit Diagnoses Diagnosis Post concussion syndrome- Primary Postconcussion syndrome Migraine without aura and without status migrainosus, not intractable Migraine without aura, without mention of intractable migraine without mention of status migrainosus documented in this encounter Care Teams Butcher Or Smallgoods Maker Relationship Specialty Start Date End Date Roxie Kerns MD [address] [place] [address] PCP - General 03/05/17 documented as of this encounter
--- OUTSIDE RECORDS SUMMARY | 2024-10-20 20:27 | XMS_ITS | Encounter Summary ---
[place] [address] Care Team Providers Care City Planning Aide Name Role Phone Roxie Kerns MD Primary Care Provider [phone] Reason for Visit * Reason Comments Skin Check * Consultation (Routine) - Closed Specialty Diagnoses / Procedures Referred By Flor de la vega Referred To Contact Dermatology Diagnoses [email or web address] Maria Luz Edwards MD [address] [place] [phone] [facility] [address] [place] [phone] Referral ID Status Reason Start Date Expiration Date V isits Requested Visits Authorized [id number] Closed Consult, [facility] 08/05/2016 08/05/2017 1 1 Encounter Details Date Type Department Care Team (Late st Contact Info) Description 10/08/2016 3:45 PM EST Office Visit Dermatology at [address] [phone] Jeremy Poole MD [address] [facility] [place] [address] Viral warts, unspecified type Social History Tobacco Use Types Packs/Day Years Used Date Smoking Tobacco: Never Sex and Gender Information Value Date Recorded Sex Assigned at Not on file Gender Identity Not on file Sexual Orientation Not on file documented as of this encounter Progress Notes * Jeremy Poole MD - 10/08/2016 3:45 PM EST PROBLEM: Verruca vulgaris. Miryam is a 15-year-old who comes in today with her mother, Maria Luz. She has had problems with hand warts now for at least a year. She has been through multiple modalities including LN2 in [facility]. Unfortunately, the warts seemed to resist this and she has been getting gradually more over time. She says they have also tried multiple dilg-vsh-cdsxcyx products. Physical examination reveals a pleasant 15-year-old who is a tall, lanky young woman who is active in sports and is looking forward to a basketball tournament this weekend. She is an 8th grader in [employer]. She has verruca present, as diagramed on the accompanying flow sheets, on both her left and right hands and 2 on her right forearm ventrally. ASSESSMENT/PLAN: 1. Verruca vulgaris. a. Discussed diagnosis. b. Discussed the common recalcitrance of verruca vulgaris c. Recommend that we try a different approach with the LN2, using with the Cry-Ac spray and applying for 3 freeze-thaw cycles each visit. d. Also begin vitamin A, taking 3 of the 8000 or 10,000 international unit size capsules p.o. t.i.d. for 3 weeks, then discontinue. Wait a week, then resume again, 3 weeks on, 1 week off. e. Also begin imiquimod 5% cream, apply to warts on an at bedtime basis, 24 packets called in, 6 grams, to [facility] in [place], [place], with 1 refill. f. Return to clinic here in 2 weeks for repeat check. NOTE: Mom states patient also has a large plantar wart on the sole of her foot, but they do not desire treatment for that at this time given the high level of sports activities now. documented in this encounter Plan of Treatment Not on file documented as of this encounter Visit Diagnoses Diagnosis Viral warts, unspecified type documented in this encounter Care Teams City Planning Aide Relationship Specialty Start Date End Date Roxie Kerns MD [address] [place] [address] [place] [address] PCP - General Pediatrics 10/08/16 documented as of this encounter
--- OUTSIDE RECORDS SUMMARY | 2024-10-20 20:27 | XMS_ITS | Encounter Summary ---
Author Organization [facility] Address [address] [place] [address] Care Team Providers Care Cleaner Furniture Name Role Phone Saumya Cardozo MD, Roxie Primary Care Provider [phone] Encounter Details Date Type Department Care Team (Late st Contact Info) Description 01/11/2024 Lab Requisition [facility] Pathology & Laboratory Medicine - [address] [address] Outr Resulting Lab, Provider Social History Tobacco Use Types Packs/Day Years Used Date Smoking Tobacco: Never Smokeless Tobacco: Never Interpersonal Safety Answer Date Record ed Physically Hurt Never 04/15/2020 Verbally Threaten Not on file 04/15/2020 Comments Unknown Sex and Gender Information Value [...] Procedure Name Priority Date/Time Associated Diagnosis Comments CHLAMYDIA/N. GONORRHOEAE AMPLIFIED NUCLEIC ACID Routine 01/11/2024 13:43 EDT documented in this encounter Results * CHLAMYDIA/N. GONORRHOEAE AMPLIFIED RNA (01/11/2024 13:43 EDT) Neisseria gonorrhoeae Result Negative Negative 01/12/2024 14:09 EDT [facility] Chlamydia trachomatis Result Negative Negative 01/12/2024 14:09 EDT [facility] Swab VAGINAL STRUCTURE / Unknown 01/11/2024 13:43 EDT 01/11/2024 21:40 EDT us Provider Outr Resulting Lab MICROBIOLOGY - GENER AL ORDERABLES Final Result [facility] [address] [place], [place] [id number] documented in this encounter Visit Diagnoses Not on filedocumented in this encounter Care Teams Cleaner Furniture Relationship Specialty Start Date End Date Roxie Kerns MD [address] [place] [address] PCP - General 03/05/17 documented as of this encounter
--- OUTSIDE RECORDS SUMMARY | 2024-10-20 20:27 | XMS_ITS | Encounter Summary ---
Author Organization [facility] [place] [address] Care Team Providers Care Molder Inflated Ball Name Role Phone Roxie Kerns MD Primary Care Provider [phone] Encounter Details Date Type Department Care Team (Late st Contact Info) Description 08/24/2018 Telephone Dermatology at [facility] [address] [place] [address] Twan Winkler MD [facility] [address] [place] [address] Social History Tobacco Use Types Packs/Day Years Used Date Smoking Tobacco: Never Smokeless Tobacco: Never Comments:No smokers in the h ouse Sex and Gender Information Value Date Recorded Sex Assigned at Not on file Gender Identity Not on file Sexual Orientation Not on file documented as of this encounter Miscellaneous Notes * Telephone Encounter - Nettie Mclaughlin - 08/24/2018 3:35 PM EST Mom Maria Luz called stating that she was very unhappy with Miryam's appointment on July 04, 2018.Maria Luz stated that the provider said in front of her daughter that this was only the second time that he was doing this procedure, and he was shaking. The provider dropped the syringe as it slippedout of his hand while doing the procedure. The nurse was very unprofessional, and was making faces.Maria Luz stated that the other doctor came into the room, and had to tell the doctor how to do the procedure. Maria Luz stated that she paid $2,000.00 and her daughter's symptoms have returned when she was told that her symptoms would not return for three months. Please call Maria Luz at [phone] regarding this matter, and her concerns. Thank you, Nettie documented in this encounter Plan of Treatment Not on file documented as of this encounter Visit Diagnoses Not on filedocumented in this encounter Care Teams Molder Inflated Ball Relationship Specialty Start Date End Date Roxie Kerns MD [address] [place] [address] PCP - General Pediatrics 10/08/16 documented as of this encounter
--- OUTSIDE RECORDS SUMMARY | 2024-10-20 20:27 | XMS_ITS | Encounter Summary ---
Author Organization [facility] Address [address] [place] [address] Care Team Providers Care Informatics Application Analyst Name Role Phone Saumya Cardozo MD, Roxie Primary Care Provider [phone] Encounter Details Date Type Department Care Team (Late st Contact Info) Description 11/07/2020 Lab Requisition [facility] Pathology & Laboratory Medicine - [address] [address] Outr Resulting Lab, Provider Social History Tobacco [...] Comments CHLAMYDIA/N. GONORRHOEAE AMPLIFIED NUCLEIC ACID Routine 11/07/2020 13:45 EST documented in this encounter Results * CHLAMYDIA/N. GONORRHOEAE AMPLIFIED RNA (11/07/2020 13:45 EST) Neisseria gonorrhoeae Result Negative Negative 11/08/2020 14:45 EST [facility] Chlamydia trachomatis Result Negative Negative 11/08/2020 14:45 EST [facility] Swab ENTIRE ENDOCERVIX / Unknown 11/07/2020 13:45 EST 11/07/2020 20:57 EST us Provider Outr Resulting Lab MICROBIOLOGY - GENER AL ORDERABLES Final Result [facility] [address] [place] [address] documented in this encounter Visit Diagnoses Not on filedocumented in this encounter Care Teams Informatics Application Analyst Relationship Specialty Start Date End Date Roxie Kerns MD [address] [place] [address] PCP - General 03/05/17 documented as of this encounter
--- OUTSIDE RECORDS SUMMARY | 2024-10-20 20:27 | XMS_ITS | Clinical Summary ---
Author Organization [facility] Address [address] [place] [address] Care Team Providers Care Nematology Teacher Name Role Phone Saumya Cardozo MD, Roxie Primary Care Provider [phone] Allergies Active Allergy Reactions Criticality Noted Date Comments Lactose GI upset 08/17/2017 Medications No known medications Active Problems No known active problems Surgical History Surgery Date Site/Laterality Comments KNEE SURGERY Left Medical History Medical History Date Comments Migraines Since ~2011 Social History Tobacco Use Types Packs/Day Years Used Date Smoking Tobacco: Never Smokeless Tobacco: Never Interpersonal Safety Answer Date Record ed Physically Hurt Never 04/15/2020 Verbally Threaten Not on file 04/15/2020 Comments Unknown Sex and Gender Information Value Date Recorded Sex Assigned at Not on file Legal Sex Female 13:35 EDT Gender Identity Not on file Sexual Orientation Not on file Obstetrics History Last Filed Vital Signs Vital Sign Reading Time Taken Comments Blood Pressure 122/68 03/08/2017 1344 EDT Pulse 60 03/08/2017 1344 EDT Temperature - - Respiratory Rate - - Oxygen Saturation - - Inhaled Oxygen Concentration - - Weight 48.5 kg (107 lb) 02/18/2018 1320 EDT Height 166.4 cm (5' 5.5) 02/18/2018 1320 EDT Body Mass Index 17.53 02/18/2018 1320 EDT Plan of Treatment Health Maintenance Due Date Last Done Comments Hepatitis C Screen 2002 Hepatitis B Vaccine (1 of 3 - 19+ 3-dose series) 10/21 COVID-19 Vaccine (2023- season) 2024 Care Teams Nematology Teacher Relationship Specialty Start Date End Date Roxie Kerns MD [address] [place] [address] PCP - General 03/05/17
--- OUTSIDE RECORDS SUMMARY | 2024-10-20 20:27 | XMS_ITS | Encounter Summary ---
Author Organization [facility] Address [address] [place] [address] Care Team Providers Care Splunk Dashboard Developer Name Role Phone Saumya Cardozo MD, Roxie Primary Care Provider [phone] Encounter Details Date Type Department Care Team (Late st Contact Info) Description 12/18/2019 Lab Requisition [facility] Pathology & Laboratory Medicine - [address] [address] Unknown, Provider, Social History Tobacco Use Types Packs/Day Years [...] Comments CHLAMYDIA/N. GONORRHOEAE AMPLIFIED NUCLEIC ACID Routine 12/18/2019 14:00 EDT documented in this encounter Results * CHLAMYDIA/N. GONORRHOEAE AMPLIFIED RNA (12/18/2019 14:00 EDT) Neisseria gonorrhoeae Result Negative Negative 12/19/2019 12:58 EDT [facility] Chlamydia trachomatis Result Negative Negative 12/19/2019 12:58 EDT [facility] Swab ENTIRE ENDOCERVIX / Unknown 12/18/2019 14:00 EDT 12/18/2019 21:07 EDT us Provider Unknown MD MICROBIOLOGY - GENERAL ORDER BEATA Final Result [facility] [address] [place] [address] documented in this encounter Visit Diagnoses Not on filedocumented in this encounter Care Teams Splunk Dashboard Developer Relationship Specialty Start Date End Date Roxie Kerns MD [address] [place] [address] PCP - General 03/05/17 documented as of this encounter
--- OUTSIDE RECORDS SUMMARY | 2024-10-20 20:27 | XMS_ITS | Clinical Summary ---
Author Organization [facility] [place] [address] Care Team Providers Care Customer Service Supervisor Name Role Phone Roxie Kerns MD Primary Care Provider [phone] Allergies Active Allergy Reactions Criticality Noted Date Comments Lactose Other (See Comments),Diarrhea 2016 Medications Medication Sig Dispensed Refills Start Date End Date Status albuterol (PROAIR HFA) 90 mcg/actuation HFA Aerosol Inhaler Every 4 hours, as needed 03/23/2016 Active omeprazole (PRILOSEC OTC) 20 mg Tablet, Delayed Release (E.C.) Take 1 tablet by mouth daily. 12/10/2014 Active Active Problems Problem Noted Date Diagnosed Date Scoliosis 08/25/2017 Chronic pain of left knee 01/19/2017 Viral warts 10/08/2016 Intermittent asthma 06/16/2016 Migraine headache 06/16/2016 Social History Tobacco Use Types Packs/Day Years Used Date Smoking Tobacco: Never Smokeless Tobacco: Never Comments:No smokers in the h ouse Sex and Gender Information Value Date Recorded Sex Assigned at Not on file Gender Identity Not on file Sexual Orientation Not on file Last Filed Vital Signs Vital Sign Reading Time Taken Comments Blood Pressure 124/75 07/06/2019 1:22 PM EDT Pulse 69 07/06/2019 1:22 PM EDT Temperature - - Respiratory Rate 17 07/06/2019 1:22 PM EDT Oxygen Saturation 100% 07/06/2019 1:22 PM EDT Inhaled Oxygen Concentration - - Weight 59 kg (130 lb) 04/05/2024 11:57 AM EDT Height 167.6 cm (5' 6) 04/05/2024 11:57 AM EDT Body Mass Index 20.98 04/05/2024 11:57 AM EDT Plan of Treatment Health Maintenance Due Date Last Done Comments Chlamydia Screening 2017 HPV vaccine (1 - 3-dose series) 2017 HIV screen 2020 Hepatitis C Screening 2020 Hepatitis B vaccine (0-59 yrs) (1) 2021 Pneumococcal Vaccine: At-Risk 5-49yrs (1 of 2 - PCV) 0 2021 Tetanus/Diphtheria/Pertussis Vaccines (1 - Tdap) 10/21 PAP Smear 2023 Covid-19 Vaccine (1 - 2023- season) 2024 Influenza (Flu) vaccine (1 o f 1 - Influenza standard series) 05/14/2024 Care Teams Customer Service Supervisor Relationship Specialty Start Date End Date Roxie Kerns MD [address] [place] [address] PCP - General Pediatrics 10/08/16
--- OUTSIDE RECORDS SUMMARY | 2024-10-20 20:27 | XMS_ITS | Encounter Summary ---
Author Organization [facility] Address [address] [place] [address] Care Team Providers Care Smoke Jumper Name Role Phone Saumya Cardozo MD, Roxie Primary Care Provider [phone] Encounter Details Date Type Department Care Team (Late st Contact Info) Description 01/26/2024 Lab Requisition [facility] Pathology & Laboratory Medicine - [address] [address] Concepcion Mcnamara, MODEL MAKER APPRENTICE [address] [place] [address] Encounter for other general examination Social History Tobacco Use Types Packs/Day Years [...] Procedure Name Priority Date/Time Associated Diagnosis Comments PAP TEST Today 01/24/2024 8:50 EDT Encounter for other general examination documented in this encounter Results * PAP TEST (01/24/2024 8:50 EDT) Specimens A. Cervix and/or Endocervix , ThinPrep Imaging System with Manual Evaluation 02/01/2024 12:53 EDT [facility] Specimen Adequacy Satisfactory for Evaluation - transformation zone component present 02/01/2024 12:53 EDT [facility] General Categorization Negative for intraepithelial lesion or malignancy 02/01/2024 12:53 EDT [facility] Attestation . 02/01/2024 12:53 EDT [facility] at 1253 Clinical History See below 02/01/20 12:53 EDT [facility] Performing Lab [facility] 02/01/2024 12:53 EDT [facility] Scanned Images 02/01/2024 12:53 EDT [facility] Pap Test CERVIX UTERI STRUCTURE / Unknown 01/24/2024 8:50 EDT 01/26/2024 9:31 EDT us [place] A Naima MODEL MAKER APPRENTICE PATHOLOGY ORDERABLES Eliza l Result [facility] [address] [place], [place] [address] documented in this encounter Visit Diagnoses Diagnosis Encounter for other general examination documented in this encounter Care Teams Smoke Jumper Relationship Specialty Start Date End Date Roxie Kerns MD [address] [place] [address] PCP - General 03/05/17 documented as of this encounter
--- OUTSIDE RECORDS SUMMARY | 2024-10-20 20:27 | XMS_ITS | Encounter Summary ---
Author Organization [facility] Address [address] [place] [address] Care Team Providers Care Auto Engine Mechanic Name Role Phone Saumya Cardozo MD, Roxie Primary Care Provider [phone] Encounter Details Date Type Department Care Team (Late st Contact Info) Description 01/24/2024 Lab Requisition [facility] Pathology & Laboratory Medicine - [address] [address] Outr Resulting Lab, Provider Social History Tobacco [...] Associated Diagnosis Comments CHLAMYDIA/N. GONORRHOEAE AMPLIFIED NUCLEIC ACID, THINPREP Today 01/24/2024 8:50 EDT documented in this encounter Results * CHLAMYDIA/N. GONORRHOEAE AMPLIFIED RNA, THINPREP (01/24/2024 8:50 EDT) Neisseria gonorrhoeae Result Negative Negative 01/25/2024 15:31 EDT [facility] Chlamydia trachomatis Result Negative Negative 01/25/2024 15:31 EDT [facility] Pap Test CERVIX UTERI STRUCTURE / Unknown 01/24/2024 8:50 EDT 01/25/2024 11:21 EDT us Provider Outr Resulting Lab MICROBIOLOGY - GENER AL ORDERABLES Final Result [facility] [address] [place], [place] [address] documented in this encounter Visit Diagnoses Not on filedocumented in this encounter Care Teams Auto Engine Mechanic Relationship Specialty Start Date End Date Roxie Kerns MD [address] [place] [address] PCP - General 03/05/17 documented as of this encounter
--- OUTSIDE RECORDS SUMMARY | 2024-10-20 20:27 | XMS_ITS | Referral Summary ---
Author Organization [facility] Address [address] [place] [address] Care Team Providers Care Health Care / Medical Job Titles Name Role Phone Saumya Cardozo MD, [place] Primary Care Provider [phone] Allergies Active Allergy Reactions Criticality Noted Date Comments Lactose GI upset 08/17/2017 Medications No known medications Active Problems No known active problems Social History Tobacco Use Types Packs/Day Years [...] Body Mass Index 17.53 02/18/2018 1320 EDT Functional Status * Because of a physical, mental, or emotional condition, does this person have difficulty doing errands alone such as visiting a doctor's office or shopping? Answer Date of Assessment Author No 03/08/2017 13:44 EDT Mental Status * Because of a physical, mental, or emotional condition, does this person have serious difficulty concentrating, remembering, or making decisions? Answer Entry Date Author Yes 03/08/2017 13:44 EDT Plan of Treatment Not on file Care Teams Health Care / Medical Job Titles Relationship Specialty Start Date End Date Roxie Kerns MD [address] [place] [address] PCP - General 03/05/17
--- OUTSIDE RECORDS SUMMARY | 2024-10-20 20:27 | XMS_ITS | Encounter Summary ---
Author Organization [facility] Address [address] [place] [address] Care Team Providers Care Returned Materials Inspector Name Role Phone Saumya Cardozo MD, Roxie Primary Care Provider [phone] Reason for Visit * Reason Comments Scoliosis Encounter Details Date Type Department Care Team (Late st Contact Info) Description 02/18/2018 13:30 EDT Office Visit [facility] Spine Program - [address] [place] [address] Garret Rankin MD [address] [facility] [place] [address] Scoliosis (and kyphoscoliosis), idiopathic (Primary Dx) Discharge Disposition: Auto Discharge Social History Tobacco Use Types Packs/Day Years [...] Body Mass Index 17.53 02/18/2018 1320 EDT Body Mass Index Percentile 14.76% 02/18/2018 132 0 EDT Growth Chart: CDC (Girls, 2- 20 Years) documented in this [...] 03/08/2017 13:44 EDT documented in this encounter Discharge Diagnoses Diagnosis M41.20 Other idiopathic scoliosis, site unspecified-M41.20[ICD-10-CM] documented in this encounter Discharge Disposition Disposition Code Departure Means Destination Auto Discharge documented in this encounter Progress Notes * Garret Rankin MD - 02/18/2018 1330 EDT This office note has been dictated. Garret Rankin MD * Garret Rankin MD - 02/18/2018 0000 EDT [facility] PROGRESS / FOLLOWUP NOTE - 02/18/2018 PROBLEM: 1. Adolescent idiopathic scoliosis. a. Thoracolumbar discomfort. SUBJECTIVE: The patient is a 15+3, Risser 4, menarche times several years, adolescent who has not had any real growth in the last year. Comes in for routine evaluation of her scoliosis. Continuing tocomplain of thoracolumbar discomfort which occurs at the end of the day regardless of what she does. It never radiates. She denies fevers, chills, night sweats, weight loss, loss of bowel or bladder control and she has had no treatment for it. OBJECTIVE: The patient is 5 feet 5-1/2 inches, 107 pounds, cooperative, appropriate. Shoulders and pelvis level. No tenderness to palpation. There is no fluctuance, erythema or masses, 5/5 all upper and lower extremity muscle groups. No clonus. DIAGNOSTIC DATA: X-rays, full length PA and lateral demonstrate a T6-T11 curve of 25 degrees, T12-L3 24 degrees, Risser 4 to 5. ASSESSMENT: Adolescent with small magnitude curve. It has not progressed at all. The likelihood is low. She does not need any further radiographic followup. The thoracolumbar discomfort is at the area between her 2 curves with torsion. It is very common to get discomfort. There are no red flag signs. I discussed that this will very likely resolve on its own over time. Options including anti-inflammatories, physical therapy, chiropractic, were all discussed. She does not want to do anything and just wants to keep doing what she is doing. PLAN: 1. Activities to tolerance without restriction. 2. Follow up p.r.n. only. Garret Rankin MD 01 35 PM - Garret Rankin MD cn Dictation ID: [id number] cc: Roxie Kerns MD, [address] [place] [id number] documented in this encounter Plan of Treatment Not on file documented as of this encounter Visit Diagnoses Diagnosis Scoliosis (and kyphoscoliosis), idiopathic- Primary documented in this encounter Care Teams Returned Materials Inspector Relationship Specialty Start Date End Date Roxie Kerns MD [address] [place] [id number] PCP - General 03/05/17 documented as of this encounter
--- OUTSIDE RECORDS SUMMARY | 2024-10-20 20:27 | XMS_ITS | Encounter Summary ---
Author Organization [facility] [place] [address] Care Team Providers Care Tile Conduit Layer Name Role Phone Roxie Kerns MD Primary Care Provider [phone] Reason for Visit * Reason Comments Follow-up Encounter Details Date Type Department Care Team (Late st Contact Info) Description 07/04/2018 3:15 PM EDT Office Visit Dermatology at [facility] [address] [place] [address] Kirt Covington MD [facility] [place] [address] [place] (actinic keratosis); Hyperhidrosis of axilla Social History Tobacco Use Types Packs/Day Years Used Date Smoking Tobacco: Never Smokeless Tobacco: Never Comments:No smokers in the h ouse Sex and Gender Information Value Date Recorded Sex Assigned at Not on file Gender Identity Not on file Sexual Orientation Not on file documented as of this encounter Progress Notes * Kirt Covington - 07/04/2018 3:15 PM EDT Images from the original note were not included. DERMATOLOGY - ESTABLISHED PATIENT FOLLOW-UP Date of service: 07/04/2018 Miryam Lozano : 2000 Dermatology Physician Soa Engineer Note: Kirt Covington MD Chief Complaint Patient presents with ??? Follow-up Excessive Sweating This is an established patient, last seen by Ale Padron PA-C. ([place]ri) on 06/28/18. HPI: This pt presents for Botox injections for axillary hyperhidrosis. This is her first treatment with Botox for axillary hyperhidrosis. Botox for hyperhidrosis inhibits muscle contraction of the sweat glands preventing sweating and some odor reduction. This is a proven and reasonable option for this problem. No significant complications or risks with injecting Botox in the axillae. No other significant health issues that would interfere with this procedure. Skin History: Axillary Hyperhidrosis Social History: Occupation: Student Medical History: No past medical history on file. Patient Active Problem List Diagnosis Code ??? Viral warts B07.9 Medications: Current Outpatient Medications Medication Sig Dispense Refill ??? albuterol (PROAIR HFA) 90 mcg/actuation HFA Aerosol Inhaler Every 4 hours, as needed ??? imiquimod (ALDARA) 5 % Cream in Packet No current facility-administered medications for this visit. Allergies Allergen Reactions ??? Lactose Other (See Comments) Review of Systems: - General: Feels well. - Skin: As per HPI; no other skin concerns. Examination: Focal examination to the axillae bilaterally. 1. Normal appearing skin with increased moisture/sweating. Diagnosis: 1. Axillary Hyperhidrosis Discussion/Plan: 1. Discussed at length hyperhidrosis treatment options, specifically Botox, expectations, length ofaction, re-treatment, cost, insurance approval needed and answered all questions. 2. We agreed to proceed. 3. We expect this to inhibit or decrease sweating for 6-9 months. 4. FU as required. May need to get another approval at that time. Procedure: 1. Re-discussed procedure, answered all questions and patient agreed to proceed. 2. Sterile prep of axillae with alcohol, grid marked in the axillae, 25-30 spots, with pinpoints 1cm apart. 3. Botox (4 units/0.1cc) was injected, approximately 1.33-2 units at each point on the grid for 50 units in each axillae, 100 units total. LOT: [id number] EXP: 11/2020 4. No complications. LOS: Procedure only. Cosmetic $2000.00 paid by mother prior to procedure Follow up: 1. 6 months sooner if needed. Instructed to call with questions or concerns. Note initiated by Casi Steiner LPN I am documenting this encounter acting as the scribe for and in the presence of Kirt Covington MD I performed the above scribed service and agree with the accuracy of the documentation in this encounter. Reviewed and signed by Kirt Covington MD Dermatology [facility] Patient seen with in direct supervision of Attending Physician: Rosemary Guzman MD Section of Dermatology [facility] * Twan Guzman MD - 07/04/2018 3:15 PM EDT I directly supervised Dr. Covington during this office visit. Dr. Covington presented the history and physical exam to me. I then saw and examined this patient with Dr. Covington. We reviewed the history and pertinent details and I confirmed the physical findings. I agree with the details of the history and physical exam as documented in Dr. Covington' note. TWAN GUZMAN MD Staff Physician documented in this encounter Plan of Treatment Not on file documented as of this encounter Visit Diagnoses Diagnosis [place] (actinic keratosis) Actinic keratosis Hyperhidrosis of axilla Primary focal hyperhidrosis documented in this encounter Care Teams Tile Conduit Layer Relationship Specialty Start Date End Date Roxie Kerns MD [address] [place] [address] PCP - General Pediatrics 10/08/16 documented as of this encounter
--- OUTSIDE RECORDS SUMMARY | 2024-10-20 20:27 | XMS_ITS | Encounter Summary ---
[place] [address] Care Team Providers Care Core Microarchitect Name Role Phone Roxie Kerns MD Primary Care Provider [phone] Encounter Details Date Type Department Care Team (Late st Contact Info) Description 08/24/2018 Telephone Dermatology at [facility] [address] [place] [id number] Ale Padron PA Social History Tobacco Use Types Packs/Day Years Used Date Smoking Tobacco: Never Smokeless Tobacco: Never Comments:No smokers in the h ouse Sex and Gender Information Value Date Recorded Sex Assigned at Not on file Gender Identity Not on file Sexual Orientation Not on file documented as of this encounter Miscellaneous Notes * Telephone Encounter - Nettei Mclaughlin - 08/24/2018 1:09 PM EST I returned mom Maria Luz's call on 08/24/18 at 1:09pm. documented in this encounter Plan of Treatment Not on file documented as of this encounter Visit Diagnoses Not on filedocumented in this encounter Care Teams Core Microarchitect Relationship Specialty Start Date End Date Roxie Kerns MD [address] [place] [address] [place] [address] PCP - General Pediatrics 10/08/16 documented as of this encounter
--- OUTSIDE RECORDS SUMMARY | 2024-10-20 20:27 | XMS_ITS | Encounter Summary ---
Author Organization [facility] Address [address] [place] [address] Care Team Providers Care Beamer Helper Name Role Phone Saumya Cardozo MD, Roxie Primary Care Provider [phone] Reason for Visit * Reason Onset Date Comments Scoliosis 08/12/2017 Encounter Details Date Type Department Care Team (Late st Contact Info) Description 08/12/2017 Orders Only [facility] Spine Program - [address] [address] Garret Rankin MD [address] [facility] [place] [address] Scoliosis concern (Primary Dx) Social History Tobacco Use Types [...] Priority Date/Time Associated Diagnosis Comments ENTIRE SPINE 2-3 VIEWS Routine 08/17/2017 10:17 EST Scoliosis concern documented in this encounter Results * ENTIRE SPINE 2-3 VIEWS (08/17/2017 10:17 EST) Anatomical Region Laterality Modality Other 08/17/2017 10:1 7 EST 08/17/2017 12:35 EST Narrative 08/17/2017 12:35 EST ENTIRE SPINE 2-3 VIEWS ??08/17/2017 10:17 AM Signs and Symptoms/Comments: ?? Z13.828-Encounter for screening for other musculoskeletal [id number]; scoliosis Findings: Upright lateral and PA radiograph of the entire spine demonstrates moderate thoracolumbar. The apex of levoscoliosis centered on L1, and the apex of dextroscoliosis centered on T8-T9. Measurements are to be performed by orthopedic surgery. No intrinsic vertebral anomaly is identified. There is no pelvic tilt. The hip joints are well formed. The lungs are clear and the heart is normal in size. The bowel gas pattern is nonspecific. Impression: Scoliosis as described above. Final Villegas angle measurements to be performed by orthopedic surgery. I have personally reviewed the images and the above interpretation and agree with the findings. Procedure Note Goran Azul MD - 08/17/2017 ENTIRE SPINE 2-3 VIEWS 08/17/2017 10:17 AM Signs and Symptoms/Comments: Z13.828-Encounter for screening for other musculoskeletal [id number]; scoliosis Findings: Upright lateral and PA radiograph of the entire spine demonstrates moderate thoracolumbar. The apex of levoscoliosis centered on L1, and the apex of dextroscoliosis centered on T8-T9. Measurements are to be performed by orthopedic surgery. No intrinsic vertebral anomaly is identified. There is no pelvic tilt. The hip joints are well formed. The lungs are clear and the heart is normal in size. The bowel gas pattern is nonspecific. Impression: Scoliosis as described above. Final Villegas angle measurements to be performed by orthopedic surgery. I have personally reviewed the images and the above interpretation and agree with the findings. us Garret Rankin MD IMG DIAGNOSTIC IMAGING O RDERABLES Final Result documented in this encounter Visit Diagnoses Diagnosis Scoliosis concern- Primary Special screening for other specified conditions documented in this encounter Care Teams Beamer Helper Relationship Specialty Start Date End Date Roxie Kerns MD [address] [place] [address] PCP - General 03/05/17 documented as of this encounter
--- OUTSIDE RECORDS SUMMARY | 2024-10-20 20:27 | XMS_ITS | Encounter Summary ---
Author [facility] [place] [address] Care Team Providers Care School Lunch Manager Name Role Phone Roxie Kerns MD Primary Care Provider [phone] Encounter Details Date Type Department Care Team (Latest Contact Info) Description 04/05/2024 Travel Social History Tobacco Use Types Packs/Day Years Used Date Smoking Tobacco: Never Smokeless Tobacco: Never Comments:No smokers in the h ouse Sex and Gender Information Value Date Recorded Sex Assigned at Not on file Gender Identity Not on file Sexual Orientation Not on file documented as of this encounter Plan of Treatment Not on file documented as of this encounter Visit Diagnoses Not on filedocumented in this encounter Care Teams School Lunch Manager Relationship Specialty Start Date End Date Roxie Kerns MD [address] [place] [address] PCP - General Pediatrics 10/08/16 documented as of this encounter
--- OUTSIDE RECORDS SUMMARY | 2024-10-20 20:27 | XMS_ITS | Encounter Summary ---
Author Organization [facility] Address [address] [place] [address] Care Team Providers Care Grades 1 Through 5 Teacher Name Role Phone Saumya Cardozo MD, [place] Primary Care Provider [phone] Reason for Visit * Reason Comments Scoliosis * Consult, Test and Treat (Routine) - Closed Specialty Diagnoses / Procedures Referred By Flor t Referred To Contact Orthopedic Surgery Diagnoses Scoliosis Tqxx-Obdg-UuzmvbEmely Somers, EDWARD Phone: tel: fax: [facility] Spine Program - [address] [place] [address] Phone: tel: fax: Referral ID Status Reason Start Date Expiration Date Visits Re quested Visits Authorized [id number] Closed 1 1 Encounter Details Date Type Department Care Team (Late st Contact Info) Description 08/17/2017 10:15 EST Office Visit [facility] Spine Program - [address] [place] [address] Garret Rankin MD [address] [place] [address] [place] [address] Scoliosis (and kyphoscoliosis), idiopathic (Primary [...] - Inhaled Oxygen Concentration - - Weight 49.4 kg (109 lb) 08/17/2017 1024 EST Height 165.5 cm (5' 5.15) 08/17/2017 1024 EST Body Mass Index 18.06 08/17/2017 1024 EST Body Mass Index Percentile 25.02% 08/17/2017 102 4 EST Growth Chart: [facility] (Girls, 2- 20 Years) documented in this [...] documented in this encounter Discharge Diagnoses Diagnosis M41.9 Scoliosis, unspecified-M41.9[ICD-10-CM] documented in this encounter Discharge Disposition Disposition Code Departure Means Destination Auto Discharge documented in this encounter Progress Notes * Garret Rankin MD - 08/17/2017 1015 EST This office note has been dictated. Garret Rankin MD documented in this encounter Consult Notes * Garret Rankin MD - 08/17/[address] [facility] SPINE PROGRAM CONSULTATION - 08/17/2017 PROBLEM: Adolescent idiopathic scoliosis. SUBJECTIVE: The patient is a 14+9, Risser 3 to 4, menarche times 18 month adolescent who was noted on a sports physical to have a prominence and referred for evaluation. She does note occasional discomfort in her scapulothoracic region. She has otherwise no complaints. PAST MEDICAL HISTORY: No known allergies. MEDICATIONS: None. SOCIAL HISTORY: The patient plays basketball and is a freshman at [employer]. FAMILY HISTORY: Unremarkable for scoliosis. OBJECTIVE: Height 65-1/8 inches tall, 109 pounds, alert, cooperative, appropriate. Shoulders and pelvis level, 1 cm right thoracic prominence, no hairy patches or skin lesions. Negative static and dynamic Romberg, 5/5 all upper and lower extremity muscle groups. No clonus. X-RAYS: Full length PA and lateral demonstrate a T6-T11 curve of 26 degrees, T12-L3 of 23 degrees. She is Risser 3 to 4. ASSESSMENT: Adolescent with a small magnitude curve, likelihood of progression is relatively low. We will continue to monitor it. PLAN: 1. Follow up in 1 year, full length PA to be obtained prior to being seen. 2. May participate in all activities with no restrictions. Garret Rankin MD 03 13 PM - Garret Rankin MD jn Dictation ID: [id number] cc: Roxie Kerns MD, [address] [place] [id number] Emely LuzBonilla* documented in this encounter Plan of Treatment Not on file documented as of this encounter Visit Diagnoses Diagnosis Scoliosis (and kyphoscoliosis), idiopathic- Primary documented in this encounter Care Teams Grades 1 Through 5 Teacher Relationship Specialty Start Date End Date Roxie Kerns MD [address] [place] [address] PCP - General 03/05/17 documented as of this encounter
--- OUTSIDE RECORDS SUMMARY | 2024-10-20 20:27 | XMS_ITS | Encounter Summary ---
Author Organization [facility] [address] Care Team Providers Care Final Inspector Motorcyles Name Role Phone Roxei Kerns MD Primary Care Provider [phone] Encounter Details Date Type Department Care Team (Latest Contact Info) Description 04/02/2024 Travel Social History Tobacco Use Types Packs/Day [...] on filedocumented in this encounter Care Teams Final Inspector Motorcyles Relationship Specialty Start Date End Date Roxie Kerns MD [address] [facility] [address] PCP - General Pediatrics 10/08/16 documented as of this encounter
--- OUTSIDE RECORDS SUMMARY | 2024-10-20 20:27 | XMS_ITS | Encounter Summary ---
[place] [address] Care Team Providers Care Bag Machine Tender Name Role Phone Roxie Kerns MD Primary Care Provider [phone] Reason for Referral * Consultation (Routine) - Closed Specialty Diagnoses / Procedures Referred By Contac t Referred To Contact Otolaryngology Diagnoses Recurrent acute tonsillitis Polyp of right nasal cavity Luisa Crain APRN [address] [place] [address] [facility] [address] [place] [phone] Referral ID Status Reason Start Date Expiration Date V isits Requested Visits Authorized [id number] Closed Consult, Test & Treat 02/21/2024 02/20/2025 1 1 Encounter Details Date Type Department Care Team (Latest Contact Info) Description 02/21/2024 Transcribe Orders eDH Incoming Referrals [phone] Luisa Crain APRN [address] [place] [address] Recurrent acute tonsillitis; Polyp of right nasal cavity Social History Tobacco Use Types Packs/Day Years Used Date Smoking Tobacco: Never Smokeless Tobacco: Never Comments:No smokers in the h ouse Sex and Gender Information Value Date Recorded Sex Assigned at Not on file Gender Identity Not on file Sexual Orientation Not on file documented as of this encounter Plan of Treatment Scheduled Referrals Name Type Priority Associated Diagnoses Orde r Schedule Referral to ENT Outpatient Referral Routine Recurrent acute tonsillitis Polyp of right nasal cavity Ordered: 02/21/2024 documented as of this encounter Visit Diagnoses Diagnosis Recurrent acute tonsillitis Acute tonsillitis Polyp of right nasal cavity documented in this encounter Care Teams Bag Machine Tender Relationship Specialty Start Date End Date Roxie Kerns MD [address] [place] [address] PCP - General Pediatrics 10/08/16 documented as of this encounter
--- OUTSIDE RECORDS SUMMARY | 2024-10-20 20:27 | XMS_ITS | Encounter Summary ---
Author Organization [facility] Address [address] [place] [address] Care Team Providers Care Radio Machinist Name Role Phone Saumya Cardozo MD, Roxie Primary Care Provider [phone] Encounter Details Date Type Department Care Team (Late st Contact Info) Description 12/27/2023 Lab Requisition [facility] Pathology & Laboratory Medicine - [address] [address] Outr Resulting Lab, Provider Social History Tobacco [...] Comments CHLAMYDIA/N. GONORRHOEAE AMPLIFIED NUCLEIC ACID Routine 12/27/2023 10:45 EDT documented in this encounter Results * CHLAMYDIA/N. GONORRHOEAE AMPLIFIED RNA (12/27/2023 10:45 EDT) Neisseria gonorrhoeae Result Negative Negative 12/28/2023 12:45 EDT [facility] Chlamydia trachomatis Result Negative Negative 12/28/2023 12:45 EDT [facility] Urine URINE / Unknown 12/27/2023 1 0:45 EDT 12/27/2023 17:48 EDT Narrative [facility] - 12/28/2023 12:45 EDT A first catch urine specimen is acceptable for detection of Gonorrhea and Chlamydia, but might detect up to 10% fewer infections when compared with vaginal and endocervical swab samples. us Provider Outr Resulting Lab MICROBIOLOGY - GENER AL ORDERABLES Final Result [facility] [address] [place] [id number] documented in this encounter Visit Diagnoses Not on filedocumented in this encounter Care Teams Radio Machinist Relationship Specialty Start Date End Date Roxie Kerns MD [address] [place] [address] PCP - General 03/05/17 documented as of this encounter
--- OUTSIDE RECORDS SUMMARY | 2024-10-20 20:27 | XMS_ITS | Encounter Summary ---
Author Organization [place] [id number] Care Team Providers Care Senior Finance Manager Name Role Phone Roxie Kerns MD Primary Care Provider Reason for Referral * Diagnostic Test (Routine) - Specialty Diagnoses / Procedures Referred By Contac t Referred To Contact Diagnoses Palpitations Right bundle branch block Procedures ThaiopaVandana Woody [facility] [place] [address] Referral ID Status Reason Start Date Expiration Date Visits Requested Visits Authorized [id number] Specialty Service Requested 05/18/2019 05/17/2020 1 1 * Diagnostic Test (Routine) - Specialty Diagnoses / Procedures Referred By Contac t Referred To Contact Cardiology Diagnoses Palpitations Right bundle branch block Procedures Echocardiogram Transthoracic([facility]) Vandana Saez DO [facility] [place] [address] [facility] [place] [address] Referral ID Status Reason Start Date Expiration Date Visits Requested Visits Authorized [id number] Specialty Service Requested 05/18/2019 05/17/2020 1 1 Reason for Visit * Consultation (NEFTALY) - Specialty Diagnoses / Procedures Referred By Contac t Referred To Contact Pediatric Cardiology Diagnoses PALPITATIONS [place] [address] [facility] [address] [place] [phone] Referral ID Status Reason Start Date Expiration Date V isits Requested Visits Authorized [id number] Consult, [facility] PCP Updated and/or Approved 04/25/2019 04/24/2020 6 6 Encounter Details Date Type Department Care Team (Late st Contact Info) Description 05/18/2019 1:00 PM EDT Office Visit [place] [address] Vandana Saez DO Palpitations; Right bundle branch block; Lightheadedness Social History Tobacco Use Types Packs/Day Years Used Date Smoking Tobacco: Never Smokeless Tobacco: Never Comments:No smokers in the h ouse Sex and Gender Information Value Date Recorded Sex Assigned at Not on file Gender Identity Not on file Sexual Orientation Not on file documented as of this encounter Last Filed Vital Signs Vital Sign Reading Time Taken Comments Blood Pressure 135/70 05/18/2019 12:13 PM EDT Pulse 74 05/18/2019 12:08 PM EDT Temperature - - Respiratory Rate 18 05/18/2019 12:0 8 PM EDT Oxygen Saturation 100% 05/18/2019 12: 08 PM EDT Inhaled Oxygen Concentration - - Weight 48.4 kg (106 lb 12.8 oz) 019 12:08 PM EDT Height 167.6 cm (5' 6) 05/18/2019 12:0 8 PM EDT Body Mass Index 17.24 05/18/2019 12:08 PM EDT Body Mass Index Percentile 6.48% 05/18 12:08 PM EDT Growth Chart: CDC (Girls, 2- 20 Years) documented in this encounter Progress Notes * Vandana Saez DO - 05/18/2019 1:00 PM EDT Pediatric Cardiology Consult Note ?? Name: Miryam Lozano : 2000 Age: 18 y.o. Location: [facility] ?? Referring Provider: Roxie Kerns MD Reason for Consult/CC: Palpitations, dizziness, abnormal EKG ?? Dear Dr. Kerns, ?? It was a pleasure evaluating Miryam Lozano today in the pediatric cardiology clinic for primarily for her palpitations. I performed a chart review of her records prior to this appointment and will summarize below: Miryam is a 18 y.o. female with a history of scoliosis and bundle branch block that was discovered incidentally during knee surgery who was referred for intermittent feeling of palpitations. She describes these episodes as feeling as if her heart is flipping inside and this lasts a few seconds before self resolution. Over the summer it was happening more frequently, but recently it has only occurred about once a week. She denies any other symptoms with these palpitations including chest pain, shortness of breath, change in vision, nausea, or syncope. There is no particular activity during which this occurs. She intermittently has headaches and also says that occasionally she will feel dizzy although this does not happen at any particular time and does not seem to coincide with other symptoms. While on rhythm monitoring undergoing anesthesia prior to knee surgery, her mother notes the anesthesiologists were gathering around the monitor and checked the leads to make sure they were capturingthe beats correctly, which was the first time she has known about any abnormality in Miryam's conduction. 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 No reported hypermobility of joints, stretchy skin. She does report having to deal with lingering joint pains and that this is something she always has felt to a certain degree. Has also complained of abd pain in the past and has taken OTC prilosec for this, but only sporadically. Labs were performed in conjunction with a PCP visit on 11/28/2018: WBC 6.3, hemoglobin 13.5, hematocrit 38.7, platelets 358, MCV 80.5 Abdominal ultrasound was also obtained and the report shows an unremarkable liver, spleen, kidneys,pancreas, and abdominal aorta. Miryam is starting 11th grade at [employer] and her mother notes that school is very challenging and that Miryam's symptoms seemed to be worst around finals time last year, which makes her think that some of the symptoms are related to anxiety or worry. Mother deals with this also. ?? Past medical history: Patient Active Problem List Diagnosis Code ??? Viral warts B07.9 ??? Intermittent asthma J45.20 ??? Migraine headache G43.909 ??? Scoliosis M41.9 ??? Chronic pain of left knee M25.562, G89.29 Past surgical history: No past surgical history on file. Family history: There is no familial history of congenital heart disease. No history of early or unexplained . No myocardial infarction history in first or second-degree relatives. No history ofarrhythmias or pacemaker placement. No history of congenital hearing loss. Social history: Lives at home with mother and father. ?? Review of symptoms: Positive for palpitations, headache, joint pains, abdominal pain, dizziness Complete review of symptoms was completed including constitutional/general, head, eyes, ears/nose/throat, respiratory, cardiovascular, lymphatic, hematologic, GI, , neurologic, musculoskeletal, endocrine, and skin systems. The pertinent positives are listed above and other systems are negative on review. Current Outpatient Medications on File Prior to Visit Medication Sig Dispense Refill ??? albuterol (PROAIR HFA) 90 mcg/actuation HFA Aerosol Inhaler Every 4 hours, as needed No current facility-administered medications on file prior to visit. Allergies Allergen Reactions ??? Lactose Other (See Comments) ?? Physical Exam: Vitals: 05/18/19 1208 05/18/19 1210 05/18/19 1212 05/18/19 1213 BP: 136/82 129/88 145/67 135/70 BP Location (NBP): Right arm Left arm Right leg Left leg Pulse: 74 Resp: 18 SpO2: 100% Weight: 48.4 kg (106 lb 12.8 oz) Height: 167.6 cm (5' 6) ?? General Appearance: Alert, cooperative, in no distress, appropriate for age Head: Normocephalic, no obvious abnormality Eyes: EOM's intact, conjunctiva and corneas clear Nose: Nares symmetrical Throat: Oral mucosa are moist, pink Neck: Supple, symmetrical; no carotid bruit, no JVD Chest/Breast: No mass or tenderness to palpation along the costochondral joints Lungs: Clear to auscultation bilaterally, respirations unlabored Heart: Normal PMI, regular rhythm, normal rate for age, S1 and physiologically split S2; no murmur,clicks, rub or gallop. 2+/4 pulses in upper and lower extremities. Abdomen: Soft, non-tender no obvious organomegaly Musculoskeletal: Tone and strength normal and symmetrical with normal ROM Skin/Hair/Nails: Skin warm, dry, and intact, no rashes, no distal clubbing Neurologic: Alert and oriented, no focal defect noted ?? I personally reviewed and interpreted the following results. ?? ECG interpretation 05/18/19: Sinus rhythm. Left axis deviation. Right bundle branch block. Ventricular rate 66 bpm R-wave axis -64 OR interval 160 msec QRS duration 142 msec QTc 478 msec ?? Complete congenital 2D echocardiogram with color flow and Doppler analysis 05/18/19: 1. No anatomic abnormality was seen with complete standard exam. 2. Left and right ventricular chamber size, wall thickness and systolic performance appear normal. 3. There is systolic color flow that appears to cross the ventricular septum in the parasternal long axis imaging (image 28, frame 62) in the posterior membranous region just anterior to the AV valves, but this is not seen in the short axis imaging and is not apparent in other views. Velocity is also not high as if there is no pressure gradient, which would point away from a VSD. 4. The interatrial septum is intact with no evidence of an atrial septal defect or patent foramen ovale. 5. The right and left atria are of normal size. 6. Normal valvar anatomy and function. 7. The aortic arch is normal in size, intact, without narrowing, dilatation or a coarctation. 8. The left main coronary artery originates normally from the left coronary sinus. 9. The right coronary artery originates normally from the right coronary sinus. ?? Assessment: Miryam Lozano is a 18 y.o. female who has intermittent palpitations, a significant right bundle branch block with prolonged QRS of 142 ms, and a seemingly non-cohesive group of symptoms including joint pain, abdominal pain, chest pain of unclear cause. Given the symptoms along with the right bundle branch, there is an indication to rule out a structural cardiac anomaly. Thankfully the echo appears normal today in both structure and function. There is a very small systolic color-flow that is in the area of the membranous VSD, but it is very small and is only seen in one view, which makes me think that it is more likely to be artifact. Even if it is present, it is too small and has no Dopplersupporting any hemodynamic significance. We talked about the evaluation of the electrical side being separate from the structural/plumbing side of the heart. Since her palpitations are very brief and self resolved, it seems less likely thatelvin is having prolonged arrhythmias as a cause of her symptoms. She may be having ectopy in the background, but the only way to assess this is with a rhythm monitor. Since her symptoms are happening o nly once a week at this point, the best monitor would be a ZIO patch since Holter has a low likelihood of capturing 1 of her episodes. For the occasional dizziness, it is possible she is having mild orthostatic symptoms that may be improved with conservative measures. She is not anemic in review of her labs earlier this year. Plan: - ZIO cardiac rhythm monitor for 14 days. - Recommend 64 ounces of clear fluids daily as well as 3 g of salt. - No restrictions to activity and no new cardiac medications recommended prior to trying conservative changes. - Endocarditis prophylaxis is not indicated per current AHA guidelines. - Follow up in 6 weeks to review results. ?? Thank you for your referral. If there are any questions we can answer in follow- up, please give ourteam a call. ?? Vandana Saez DO [facility] Pediatric [facility]iology ' * Kim Feldman RN - 05/18/2019 1:00 PM EDT Zio patch was applied to patient while in clinic as per the manufacture's guidelines/instructions. After observing the blinking green light, indicating the unit was operating, I reviewed the use of the Zio patch. The parent/patient was then able to press the event button, verbalize when to be recording events in the diary, and avoiding immersion in water (but showers OK). The parent/patient was instructed to keep the monitor on for the full 14 days and to return it in the shipping box provided. Reasons to call [employer]. were reviewed as was their phone number. Explained that the final report would be ready approximately two weeks after it was received at the company. Parent/patient state understanding. documented in this encounter Plan of Treatment Not on file documented as of this encounter Procedures Procedure Name Priority Date/Time Associated Diagnosis Comments ZIOPATCH Routine 06/14/2019 9:57 AM EDT Palpitations Right bundle branch block EKG 12-LEAD Routine 05/18/2019 12:22 PM EDT Palpitations documented in this encounter Results * Ziopatch (06/14/2019 9:57 AM EDT) Anatomical Region Laterality Modality Other Narrative 07/06/2019 2:12 PM EDT This is documentation for a Zio XT heart monitor that was ordered at [facility] by myself. Device was ordered for palpitations. Total time device was worn is 11 days 20 hrs. Date: 05/18 to 05/30/19 Heart rate Max 182 bpm Min 42 bpm Mean 85 bpm Rare (35 total, <0.1%) single supraventricular beats noted. No couplets, no SVT runs. Rare (130 total, <0.1%) single premature ventricular beats noted. 17 couplets, no runs. One example of a fusion beat, PVC, then fusion beat, followed by sinus rhythm. 13 patient triggered events were noted: Each of them were associated with sinus rhythm with NO ectopy. Rate range during these events were 57-179. 10 diary entries were noted: These were all associated sinus rhythm without ectopy. Overall, this is a reassuring study in that her symptoms are not associated with ectopy. ??She did have rare ventricular ectopy including couplets, but no sustained ventricular tachycardia. Vandana Saez DO [facility] Procedure Note Vandana Saez DO - 07/06/2019 This is documentation for a Zio XT heart monitor [facility] [place] [facility] Device was ordered for palpitations. Total time device was worn is 11 days 20 hrs. Date: 05/18 to 05/30/19 Heart rate Max 182 bpm Min 42 bpm Mean 85 bpm Rare (35 total, <0.1%) single supraventricular beats noted. No couplets,no SVT runs. Rare (130 total, <0.1%) single premature ventricular beats noted. 17couplets, no runs. One example of a fusion beat, PVC, then fusion beat,followed by sinus rhythm. 13 patient triggered events were noted: Each of them were associated with sinus rhythm with NO ectopy. Rate rangeduring these events were 57-179. 10 diary entries were noted: These were all associated sinus rhythm without ectopy. Overall, this is a reassuring study in that her symptoms are notassociated with ectopy. She did have rare ventricular ectopy includingcouplets, but no sustained ventricular tachycardia. Vandana Saez, DO [facility]iology Vandana Saez DO CARDIAC SERVICES ORD ERABLES * ECHO COMPLETE (05/18/2019 4:19 PM EDT) Anatomical Region Laterality Modality Other 05/18/2019 Narrative 05/18/2019 5:34 PM EDT Procedure: ?Pediatric Echocardiogram Patient: ?DOYON MIRYAM R ? (Age): 2000(18y) ? Med Rec#: ? [id number] ?Sex: ?F ? Site Loc: ? [facility] ?Ht / Wt: ??167.6(cm)/48.4( Pt. Loc: ?Echo Lab ?BSA: ?1.489 (Timothy) Study Date: ?? 05/18/2019 ?Pt. Type: Study Quality: ? Referring: VANDANA SAEZ C Reading: Vandana Saez ([id number]) Optical Glass Wet Inspector: Evelyn Woods [facility] Optical Glass Wet Inspector 2: Maria Luz Terry Diagnosis: *Palpitations (R00.2) *Abnormal electrocardiogram [ECG] [EKG] (R94.31) BP: ? 128/69 SUMMARY: 1. No anatomic abnormality was seen with complete standard exam. 2. Left and right ventricular chamber size, wall thickness and systolic performance appear normal. 3. There is systolic color flow that appears to cross the ventricular septum in the parasternal long axis imaging (image 28, frame 62) in the posterior membranous region just anterior to the AV valves, but this is not seen in the short axis imaging and is not apparent in other views. Velocity is also not high as if there is no pressure gradient, which would point away from a VSD. 4. The interatrial septum is intact with no evidence of an atrial septal defect or patent foramen ovale. 5. The right and left atria are of normal size. 6. Normal valvar anatomy and function. 7. The aortic arch is normal in size, intact, without narrowing, dilatation or a coarctation. 8. The left main coronary artery originates normally from the left coronary sinus. 9. The right coronary artery originates normally from the right coronary sinus. FINDINGS: ? Study Type ?2-D echo/SD/CD Situs And Relations ?There is levocardia with visceral and atrial situs solitus, atrioventricular concordance (D-looped ventricles) and normally related great arteries {S,D,S}. Venous Connections ?There are normal systemic venous connections, with the superior and inferior vena cavae returning to the right atrium. ?At least one pulmonary vein from each side enters the left atrium. Atrial Septum ?The interatrial septum is intact with no evidence of an atrial septal defect or patent foramen ovale. Atria ?The right and left atria are of normal size. Av Valves ?The tricuspid valve is functionally and structurally normal. ?There is physiologic tricuspid regurgitation. ?The mitral valve is normal in structure with no stenosis or regurgitation. Outflow Tracts ?The right and left ventricular outflow tracts have normal size and geometry, without obstruction or narrowing. Ventricles ?The right ventricle has normal chamber size, wall thickness and systolic function. ?There is no evidence of right ventricular hypertension. ?The left ventricle has normal chamber size, wall thickness and systolic function. Ventricular Septum ?The interventricular septum is intact with no evidence of a ventricular septal defect. There is systolic color flow that appears to cross the ventricular septum in the parasternal long axis imaging in the posterior membranous region just anterior to the AV valves, but this is not seen in the short axis imaging and is not apparent in other views. Semilunar Valves ?There is laminar flow and a normal flow velocity across the pulmonary valve with no evidence of stenosis. ?There is physiologic pulmonary valve insufficiency. ?The aortic valve is normal with three leaflets, no stenosis, or insufficiency. Aortic Pulmonary Root ?The pulmonary root and sinuses are normal without dilatation or stenosis. ??The aorta sinuses of Valsalva and sinotubular junction are normal without stenosis or dilation. Thoracic Arteries ?The main and branch pulmonary arteries are normal in size and configuration, without narrowing or dilatation. ?There is no patent ductus arteriosus. ?The aortic arch is normal in size, intact, without narrowing, dilatation or a coarctation. ?There is a left sided aortic arch. Coronary Arteries ?The left main coronary artery originates normally from the left coronary sinus. ?The right coronary artery originates normally from the right coronary sinus. Effusion ?There is no pericardial or pleural effusion noted. Chambers MM ?Value ?Units (Range) ? Z Score ? IVSd MM ? 7.96 ? mm (6.09 - 11.29) ?? -0.6 ? LVPWd MM ?7.19 ? mm (5.97 - 10.37) ?? -0.9 ? LVEDd dim MM ?45 ? mm (39.74 - 53.14) ??-0.4 ? LVEDs dim MM ?25.1 ? mm (23.7 - 36.14) ?? -1.5 ? EF (Teichholz) MM ?? 75.6 ? % ? Chambers 2D ?Value ?Units (Range) ? Z Score ? LAs dim (AP) 2D ? 24.2 ? mm ? Aga / Sys Function ?Value ?Units (Range) ? Z Score ? MV E-wave Vmax ?75 ? cm/s ? MV dec time ? 190 ?ms ? MV A-wave Vmax ?51.8 ? cm/s ? MV E:A ratio ?1.4 ?ratio ? Aorta ?Value ?Units (Range) ? Z Score ? AV milana diam 2D ?17.2 ? mm (15.57 - 22.61) ??-1.1 ? Ao root diam 2D ? 24.5 ? mm (20.32 - 30.88) ??-0.4 ? Ao STJ diam ? 18.8 ? mm (16.86 - 26.62) ??-1.2 ? Asc Ao diam (LAX) ?? 23.9 ? mm (17.49 - 28.25) ??0.4 ? All Z scores are estimated This report has been electronically signed by: Vandana Saez MD ? 05/18/2019 17:34:13 Images reviewed and interpretation verified [facility] Procedure Note Vandana Saez DO - 05/18/2019 Procedure: Pediatric Echocardiogram Patient: MARK Carter DOB(Age): 2000(18y) Med Rec#: [id number] Sex: F Site Loc: [facility] Ht / Wt: 167.6(cm)/48.4( Pt. Loc: Echo Lab BSA: 1.489 ([facility]) Study Date: 05/18/2019 Pt. Type: Study Quality: Referring: VANDANA SAEZ C Reading: Vandana Saez ([id number]) Optical Glass Wet Inspector: Evelyn Woods Optical Glass Wet Inspector 2: Maria Luz Terry Diagnosis: *Palpitations (R00.2) *Abnormal electrocardiogram [ECG] [EKG] (R94.31) BP: 128/69 SUMMARY: 1. No anatomic abnormality was seen with complete standard exam. 2. Left and right ventricular chamber size, wall thickness and systolic performance appear normal. 3. There is systolic color flow that appears to cross the ventricular septum in the parasternal long axis imaging (image 28, frame 62) in the posterior membranous region just anterior to the AV valves, but this is not seen in the short axis imaging and is not apparent in other views. Velocity is also not high as if there is no pressure gradient, which would point away from a VSD. 4. The interatrial septum is intact with no evidence of an atrial septal defect or patent foramen ovale. 5. The right and left atria are of normal size. 6. Normal valvar anatomy and function. 7. The aortic arch is normal in size, intact, without narrowing, dilatation or a coarctation. 8. The left main coronary artery originates normally from the left coronary sinus. 9. The right coronary artery originates normally from the right coronary sinus. FINDINGS: Study Type 2-D echo/SD/CD Situs And Relations There is levocardia with visceral and atrial situs solitus, atrioventricular concordance (D-looped ventricles) and normally related great arteries {S,D,S}. Venous Connections There are normal systemic venous connections, with the superior and inferior vena cavae returning to the right atrium. At least one pulmonary vein from each side enters the left atrium. Atrial Septum The interatrial septum is intact with no evidence of an atrial septal defect or patent foramen ovale. Atria The right and left atria are of normal size. Av Valves The tricuspid valve is functionally and structurally normal. There is physiologic tricuspid regurgitation. The mitral valve is normal in structure with no stenosis or regurgitation. Outflow Tracts The right and left ventricular outflow tracts have normal size and geometry, without obstruction or narrowing. Ventricles The right ventricle has normal chamber size, wall thickness and systolic function. There is no evidence of right ventricular hypertension. The left ventricle has normal chamber size, wall thickness and systolic function. Ventricular Septum The interventricular septum is intact with no evidence of a ventricular septal defect. There is systolic color flow that appears to cross the ventricular septum in the parasternal long axis imaging in the posterior membranous region just anterior to the AV valves, but this is not seen in the short axis imaging and is not apparent in other views. Semilunar Valves There is laminar flow and a normal flow velocity across the pulmonary valve with no evidence of stenosis. There is physiologic pulmonary valve insufficiency. The aortic valve is normal with three leaflets, no stenosis, or insufficiency. Aortic Pulmonary Root The pulmonary root and sinuses are normal without dilatation or stenosis. The aorta sinuses of Valsalva and sinotubular junction are normal without stenosis or dilation. Thoracic Arteries The main and branch pulmonary arteries are normal in size and configuration, without narrowing or dilatation. There is no patent ductus arteriosus. The aortic arch is normal in size, intact, without narrowing, dilatation or a coarctation. There is a left sided aortic arch. Coronary Arteries The left main coronary artery originates normally from the left coronary sinus. The right coronary artery originates normally from the right coronary sinus. Effusion There is no pericardial or pleural effusion noted. Chambers MM Value Units (Range) Z Score IVSd MM 7.96 mm (6.09 - 11.29) -0.6 LVPWd MM 7.19 mm (5.97 - 10.37) -0.9 LVEDd dim MM 45 mm (39.74 - 53.14) -0.4 LVEDs dim MM 25.1 mm (23.7 - 36.14) -1.5 EF (Teichholz) MM 75.6 % Chambers 2D Value Units (Range) Z Score LAs dim (AP) 2D 24.2 mm Aga / Sys Function Value Units (Range) Z Score MV E-wave Vmax 75 cm/s MV dec time 190 ms MV A-wave Vmax 51.8 cm/s MV E:A ratio 1.4 ratio Aorta Value Units (Range) Z Score AV milana diam 2D 17.2 mm (15.57 - 22.61) -1.1 Ao root diam 2D 24.5 mm (20.32 - 30.88) -0.4 Ao STJ diam 18.8 mm (16.86 - 26.62) -1.2 Asc Ao diam (LAX) 23.9 mm (17.49 - 28.25) 0.4 All Z scores are estimated This report has been electronically signed by: Vandana Saez MD 05/18/2019 17:34:13 Images reviewed and interpretation verified [facility] Vandana Saez DO ECHO ORDERABLES * EKG 12 Lead (05/18/2019 12:22 PM EDT) Ventricular rate 66 BPM MUSE SYSTEM Atrial Rate 66 BPM MUSE SYSTEM P-R Interval 160 ms MUSE SYSTEM QRS Duration 142 ms MUSE SYSTEM Q-T Interval 456 ms MUSE SYSTEM QTC Calculated (Bezet) 478 ms MUSE SYSTEM Calculated R [place] -64 degrees MUSE SYSTEM Calculated T [place] 1 degrees MUSE SYSTEM INTERPRETATION Normal sinus rhythm with sinus arrhythmia Left axis deviation Right bundle branch block Abnormal ECG No previous ECGs available Confirmed by DO Saez Zachary C. ([id number]) on 05/19/2019 8:31:27 PM MUSE SYSTEM 05/18/2019 12:2 2 PM EDT 05/19/2019 8:31 PM EDT Vandana Saez DO ECG ORDERABLES MUSE SYSTEM documented in this encounter Visit Diagnoses Diagnosis Palpitations Right bundle branch block Lightheadedness Dizziness and giddiness Palpitations Abnormal EKG Nonspecific abnormal electrocardiogram (ECG) (EKG) documented in this encounter Care Teams Senior Finance Manager Relationship Specialty Start Date End Date Roxie Kerns MD [address] [facility] [address] PCP - General Pediatrics 10/08/16 documented as of this encounter
--- OUTSIDE RECORDS SUMMARY | 2024-10-20 20:27 | XMS_ITS | Encounter Summary ---
[place] [address] Care Team Providers Care Resident Care Spec Name Role Phone Roxie Kerns MD Primary Care Provider [phone] Encounter Details Date Type Department Care Team (Late st Contact Info) Description 05/18/2019 [place] [id number] Unknown None Social History Tobacco Use Types Packs/Day Years Used Date Smoking Tobacco: Never Smokeless Tobacco: Never Comments:No smokers in the h ouse Sex and Gender Information Value Date Recorded Sex Assigned at Not on file Gender Identity Not on file Sexual Orientation Not on file documented as of this encounter Plan of Treatment Pending Results Name Type Priority Associated Diagnoses Date /Time EKG 12 Lead ECG Routine 05/18/2019 12 :22 PM EDT documented as of this encounter Procedures Procedure Name Priority Date/Time Associated Diagnosis Comments EKG 12-LEAD Routine 05/18/2019 12:22 PM EDT documented in this encounter Visit Diagnoses Not on filedocumented in this encounter Care Teams Resident Care Spec Relationship Specialty Start Date End Date Roxie Kerns MD [address] [place] [address] PCP - General Pediatrics 10/08/16 documented as of this encounter
--- OUTSIDE RECORDS SUMMARY | 2024-10-20 20:27 | XMS_ITS | Encounter Summary ---
[place] [address] Care Team Providers Care Pot Sander Name Role Phone Roxie Kerns MD Primary Care Provider [phone] Reason for Referral * Diagnostic Test (Routine) - Specialty Diagnoses / Procedures Referred By Contac t Referred To Contact Cardiology Diagnoses Palpitations Right bundle branch block Procedures Echocardiogram Transthoracic([facility]) Vandana Saez [facility] [place] [address] [facility] [place] [address] Referral ID Status Reason Start Date Expiration Date Visits Requested Visits Authorized [id number] Specialty Service Requested 05/18/2019 05/17/2020 1 1 Reason for Visit * Diagnostic Test (Routine) - Specialty Diagnoses / Procedures Referred By Contac t Referred To Contact Cardiology Diagnoses Palpitations Right bundle branch block Procedures Echocardiogram Transthoracic([facility]) Vandana Saez [facility] [place] [address] [address] [facility] [place] [address] Referral ID Status Reason Start Date Expiration Date Visits Requested Visits Authorized [id number] Specialty Service Requested 05/18/2019 05/17/2020 1 1 Encounter Details Date Type Department Care Team (Latest Contact Info) Description 05/18/2019 2:41 PM EDT - 05/18/2019 11:59 PM EDT Hospital Encounter Non-[place] [address] Vandana Saez DO Palpitations; Abnormal EKG Discharge Disposition: Home Social History Tobacco Use Types Packs/Day Years Used Date Smoking Tobacco: Never Smokeless Tobacco: Never Comments:No smokers in the h ouse Sex and Gender Information Value Date Recorded Sex Assigned at Not on file Gender Identity Not on file Sexual Orientation Not on file documented as of this encounter Medications at Time of Discharge Medication Sig Dispensed Refills Start Date End Date omeprazole (PRILOSEC OTC) 20 mg Tablet, Delayed Release (E.C.) Take 1 tablet by mouth daily. 12/10/2014 albuterol (PROAIR HFA) 90 mcg/actuation HFA Aerosol Inhaler Every 4 hours, as needed 03/23/2016 documented as of this encounter Plan of Treatment Not on file documented as of this encounter Procedures Procedure Name Priority Date/Time Associated Diagnosis Comments ECHO COMPLETE Routine 05/18/2019 4:19 PM EDT Palpitations Abnormal EKG documented in this encounter Results * ECHO COMPLETE (05/18/2019 4:19 PM EDT) Anatomical Region Laterality Modality Other 05/18/2019 Narrative 05/18/2019 5:34 PM EDT Procedure: ?Pediatric Echocardiogram Patient: ?DOYON MIRYAM R ? (Age): 2000(18y) ? Med Rec#: ? [id number] ?Sex: ?F ? Site Loc: ? [facility] ?Ht / Wt: ??167.6(cm)/48.4( Pt. Loc: ?Echo Lab ?BSA: ?1.489 ([facility]) Study Date: ?? 05/18/2019 ?Pt. Type: Study Quality: ? Referring: VANDANA SAEZ C Reading: Vandana Saez. ([id number]) Roll Forming Machine Set Up Mechanic: Evelyn Woods [facility] Roll Forming Machine Set Up Mechanic 2: Maria Luz Terry Diagnosis: *Palpitations (R00.2) [...] 05/18/2019 17:34:13 Images reviewed and interpretation verified [facility] Procedure Note Vandana Saez DO - 05/18/2019 Procedure: Pediatric Echocardiogram Patient: MARK Carter DOB(Age): 2000(18y) Med Rec#: [id number] Sex: F Site Loc: [facility] Ht / Wt: 167.6(cm)/48.4( Pt. Loc: Echo Lab BSA: 1.489 ([place]) Study Date: 05/18/2019 Pt. Type: Study Quality: Referring: VANDANA SAEZ C Reading: Vandana Saez ([id number]) Roll Forming Machine Set Up Mechanic: Evelyn Woods [facility] Roll Forming Machine Set Up Mechanic 2: Maria Luz Terry Diagnosis: *Palpitations (R00.2) [...] 05/18/2019 17:34:13 Images reviewed and interpretation verified [facility] Vandana Saez DO ECHO ORDERABLES documented in this encounter Visit Diagnoses Diagnosis Palpitations Abnormal EKG Nonspecific abnormal electrocardiogram (ECG) (EKG) documented in this encounter Care Teams Pot Sander Relationship Specialty Start Date End Date Rox[place] [address] PCP - General Pediatrics 10/08/16 documented as of this encounter
--- OUTSIDE RECORDS SUMMARY | 2024-10-20 20:27 | XMS_ITS | Encounter Summary ---
Author Organization [facility] [place] [address] Care Team Providers Care Freezing Machine Operator Name Role Phone Roxie Kerns MD Primary Care Provider [phone] Reason for Visit * Reason Comments Follow-up Encounter Details Date Type Department Care Team (Latest Contact Info) Description 08/30/2018 2:00 PM EST Office Visit Dermatology at [facility] [address] [place] [address] Twan Winkler MD [facility] [address] [place] [address] Hyperhidrosis of axilla Social History Tobacco Use Types Packs/Day Years Used Date Smoking Tobacco: Never Smokeless Tobacco: Never Comments:No smokers in the h ouse Sex and Gender Information Value Date Recorded Sex Assigned at Not on file Gender Identity Not on file Sexual Orientation Not on file documented as of this encounter Progress Notes * Twan Winkler MD - 08/30/2018 2:00 PM EST PROBLEM: 1. Axillary Hyperhidrosis 2. Here for treatment options including Botox injections SUBJECT: 17 y.o. year old female. Here for discussion of treatment options for hyperhidrosis. Specifically here to discuss Botox, since Drysol and antipersperant failed. History of systemic therapies: Other therapies tried: Impact on quality of life: Hyperhidrosis disease severity scale (HDSS), pick statement which best reflects patient's experience with disease: 1. My sweating is barely tolerable and frequently interferes with my daily activities. Sympathectomy not resonable in my opinion. Botox for hyperhidrosis inhibits muscle contraction of the sweat glands preventing sweating and some odor reduction. This is a proven and reasonable option for this problem. No anesthesia is usually needed for this procedure. Topical anesthesia is minimally effective, so will perform the procedure without out any intralesional anesthesia. Patient understands and agrees to this. No significant complications or risks with injecting Botox in the axillae. No other significant health issues that would interfere with this procedure. EXAMINATION: Focal examination to the axillae bilaterally. Normal appearing skin with increased moisture/sweating. DIAGNOSIS: 1. Axillary Hyperhidrosis Discussion: 1. Spent over half of this visit discussing hyperhidrosis treatment options, specifically Botox, expectations, length of action, re-treatment, cost, insurance approval needed and answered all questions. 2. We agreed to proceed. 3. We expect this to inhibit or decrease sweating for 6-9 months. 4. FU as required. May need to get another approval at that time. Procedure: 1. Re-discussed procedure, answered all questions and patient agreed to proceed. 2. Sterile prep of axillae with alcohol, grid marked in the axillae, with pinpoints 1cm apart. Approximately 50cm square area. 3. Botox (5 units/0.1cc) was injected into this grid, approximately 2.5 units at each point on the grid for 25 units in each axillae. LOT: [id number] EXP: 08/2020 4. No complications. Follow up: 1. If she feels that her sweating has worsened again in the middle of September she is to call and have additional 50 units injected, 25 units per axilla. documented in this encounter Plan of Treatment Not on file documented as of this encounter Visit Diagnoses Diagnosis Hyperhidrosis of axilla Primary focal hyperhidrosis documented in this encounter Administered Medications Inactive Administered Medications - up to 3 most recent administrations Medication Order MAR Action Action Date Dose Rate Site Botulinum Toxin Type A SolR 50 Units 50 Units, Intramuscular, ONCE, 1 dose, On Wed08/30/18 at 1500, Routine Given 08/30/2018 2:51 PM EST 50 Units documented in this encounter Care Teams Freezing Machine Operator Relationship Specialty Start Date End Date Roxie Kerns MD [address] [place] [address] PCP - General Pediatrics 10/08/16 documented as of this encounter
--- OUTSIDE RECORDS SUMMARY | 2024-10-20 20:27 | XMS_ITS | Encounter Summary ---
Author Organization [facility] [place] [address] Care Team Providers Care Home Care Manager Name Role Phone Roxie Kerns MD Primary Care Provider [phone] Reason for Visit * Reason Comments Excessive Sweating * Consultation (Routine) - Closed Specialty Diagnoses / Procedures Referred By Flor t Referred To Contact Dermatology Diagnoses AXILLARY HYPERHIDROSIS Jabi-Haql-MkuodeEmely Somers APRN [address] [place] [address] [facility] [address] [place] [address] Referral ID Status Reason Start Date Expiration Date V isits Requested Visits Authorized [id number] Closed Consult, Test & Treat Connection [facility] 05/09/2018 05/09/2019 1 1 Encounter Details Date Type Department Care Team (Late st Contact Info) Description 06/28/2018 1:00 PM EDT Office Visit Dermatology at [facility] [address] [place] [phone] Klaus Parker MD [facility] [address] [address] Ale Padron PA Axillary hyperhidrosis Social History Tobacco Use Types Packs/Day Years Used Date Smoking Tobacco: Never Smokeless Tobacco: Never Sex and Gender Information Value Date Recorded Sex Assigned at Not on file Gender Identity Not on file Sexual Orientation Not on file documented as of this encounter Progress Notes * Ale Padron PA - 06/28/2018 1:00 PM EDT DERMATOLOGY - ESTABLISHED PATIENT FOLLOW-UP Date of service: 06/28/2018 Miryam Lozano : 2000, 17 y.o. CC: Chief Complaint Patient presents with ??? Excessive Sweating HPI: Miryam Lozano is a 17 y.o. female last seen by Dr. Poole on 10/22/2016. Patient is new to me, Ms. Lozano returns today with her mom, Maria Luz, for axillary hyperhidrosis. She goes to a private school and cannot wear the required uniform because she sweats through her clothes. She always has towear a sweater or black to not draw attention to her sweating. She used to use a clinical strength antiperspirant and is currently using a regular antiperspirant. She was applying it after showering in the morning until her doctor told her to apply it at night. However, it still was not effective when she began applying at night. She has already tried Drysol as well. She also sweats excessively from her hands. Relevant Skin History: - Okay to leave detailed voice message with results? Yes - Warts Family History: Melanoma: None Social History: - Medications: Current Outpatient Medications Medication Sig Dispense Refill ??? imiquimod (ALDARA) 5 % Cream in Packet ??? albuterol (PROAIR HFA) 90 mcg/actuation HFA Aerosol Inhaler Every 4 hours, as needed No current facility-administered medications for this visit. Allergies: No Known Allergies Review of Systems: - General: Feels well. - Skin: No other skin concerns. Examination: - Constitutional: Patient was alert, well-appearing and in no noticeable distress. - Skin: A focused examination of the hands and axillae was performed. Diagnosis/Skin findings/Assessment/Plan: 1. Axillary hyperhidrosis - Advised patient to apply antiperspirant before she goes to bed at night. - Discussed efficacy of treatment with Botox injections approximately every 6 months. - Patient is interested in pursuing this option. However, she does not currently have health insurance. - Quoted almanzar per Dr. Winkler: $2000 per treatment (100 units, 50 units per axilla q 6 months). - Also discussed treatment with oral glycopyrrolate. 1 mg twice daily, working up to 2 mg twice daily until treatment efficacy is realized. - Patient has a history of a bundle branch block. She does not see cardiology. She should see cardiology prior to starting this medication and given her bundle branch block the glycopyrrolate may notbe a good option for her. We recommend that she does be seen by pediatric cardiology regardless fora baseline exam given her history. - Patient and mom would like to pursue Botox injections. [facility] [id number] RTC: For Botox injections for axillary hyperhidrosis with Dr. Covington. Scheduled upon exiting. Note initiated by AGUSTIN WILKERSON. I, Kia Krueger, have performed the documentation for this encounter in the presence of and acting as a scribe for Ale Padron PA-C (Bri). I performed the services which were documented by the scribe, and I agree with the accuracy of the documentation in this encounter. Ale Padron PA-C Reviewed and signed by Ale Padron PA-C [facility] Patient seen in conjunction with staff merchandise coordinator: Klaus Parker MD Section of Dermatology [facility] * Klaus Parker MD - 06/28/2018 1:00 PM EDT Encouraged family to have Miryam seen by a adult and pediatric neurologist given what mom reports is a h/o bundle branch block. Will avoid glycopyrrolate for this reason at least until she is evaluated by cardiology. They would like to pursue Botox. Patient seen in conjunction with Ale Padron PA-C (Bri) Signed by: KLAUS PARKER MD Section of Dermatology [facility] documented in this encounter Plan of Treatment Not on file documented as of this encounter Visit Diagnoses Diagnosis Axillary hyperhidrosis Primary focal hyperhidrosis documented in this encounter Care Teams Home Care Manager Relationship Specialty Start Date End Date Roxie Kerns MD [address] [place] [address] PCP - General Pediatrics 10/08/16 documented as of this encounter
--- OUTSIDE RECORDS SUMMARY | 2024-10-20 20:27 | XMS_ITS | Encounter Summary ---
[place] [address] Care Team Providers Care Senior Security Analyst Name Role Phone Roxie Kerns MD Primary Care Provider [phone] Reason for Visit * Reason Comments Follow-up Encounter Details Date Type Department Care Team (Late st Contact Info) Description 10/22/2016 4:15 PM EST Office Visit Dermatology at [address] [place] [address] Jeremy Poole MD [address] [facility] A DERMATOLOGY [place], [place] [id number] Viral warts, unspecified type Social History Tobacco Use Types Packs/Day Years Used Date Smoking Tobacco: Never Sex and Gender Information Value Date Recorded Sex Assigned at Not on file Gender Identity Not on file Sexual Orientation Not on file documented as of this encounter Progress Notes * Jereym Poole MD - 10/22/2016 4:15 PM EST Problem: Verruca vulgaris. Miryam follows up and is doing much better. Physical examination reveals that her warts are essentially all cleared with perhaps 2 that still remain on her right index finger dorsally. The other sites have totally resolved, and also on her left forearm. Even today looking at the plantar warts at the distal sole of her left foot, the patient is amazed that these sites not treated with anything other than the oral vitamin A seem to really be shrinking. Miryam and her mother are quite proud about her recent success in basketball. The [facility] [facility] basketball team beat [place] and won the tournament recently! She has had a great season with this basketball team. ASSESSMENT AND PLAN: Verruca vulgaris. a. Today, LN2 x 2 applied to 2 remaining wart sites. b. Continue her vitamin A taking 3 of the 10,000 International Unit size pills t.i.d. for another couple weeks then DC, wait a week and then resume, 3 weeks on and 1 week off. c. Continue imiquimod cream applying to the warts on a bedtime basis. Also may apply to plantar warts on the distal sole of left foot. d. Return to clinic. At this point, would recommend that I see her back on a p.r.n. basis. cc: Roxie Kerns MD documented in this encounter Plan of Treatment Not on file documented as of this encounter Visit Diagnoses Diagnosis Viral warts, unspecified type documented in this encounter Care Teams Senior Security Analyst Relationship Specialty Start Date End Date Roxie Kerns MD [address] [place] [address] PCP - General Pediatrics 10/08/16 documented as of this encounter
== END 2024-10-20 20:26 | disposition home or self-care (01) ==
LOC: LBN 20:25
PROVIDERS: PCP Nurse Practitioner Family; Visit Provider Physician Assistant
DX: J02.9 Acute pharyngitis, unspecified (principal)
CPT/HCPCS: 87070

== ENCOUNTER 2024-12-22 10:51 | Outpatient (REF) | payer MEDICAID, SELFPAY ==
[2024-12-25 12:44] LABS: Chlamydia Result Negative (Negative); GC Result Negative (Negative)
== END 2024-12-22 10:52 | disposition home or self-care (01) ==
LOC: LBN 10:51
PROVIDERS: PCP Nurse Practitioner Family; Visit Provider Obstetrics & Gynecology
DX: Z30.430 Encounter for insertion of intrauterine contraceptive device (principal); Z11.3 Encounter for screening for infections with a predominantly sexual mode of transmission
CPT/HCPCS: 87491; 87591

== ENCOUNTER 2025-01-08 10:28 | Outpatient (REF) | payer MEDICAID, SELFPAY | END 2025-01-08 10:29 | disposition home or self-care (01) | LOC: LBN 10:28 | PROVIDERS: PCP Nurse Practitioner Family; Visit Provider Obstetrics & Gynecology | DX: N89.8 Other specified noninflammatory disorders of vagina (principal); Z97.5 Presence of (intrauterine) contraceptive device | CPT/HCPCS: 87480; 87510; 87660 ==

== ENCOUNTER 2025-01-10 16:37 | Emergency (ER) | payer MEDICAID, SELFPAY ==
[2025-01-10 16:39] VITALS: BP 169/105; PULSE 86; RESP 20; TEMP 36.4; O2SAT 94
[2025-01-10 16:41] VITALS: BP 169/105; PULSE 86; RESP 20; TEMP 36.4; O2SAT 94
--- NOTE | 2025-01-10 16:45 | DI.CT_ITS ---
Exam(s) CT ABDOMEN PELVIS W EXAM: CT ABDOMEN PELVIS W CLINICAL HISTORY: RLQ tenderness TECHNIQUE: Imaging Protocol: Axial computed tomography images with coronal and sagittal reformatted images were created and reviewed. CONTRAST MATERIAL: Intravenous: Omnipaque 350 Contrast volume:75 mL Oral: No COMPARISON: US US ABDOMEN from 11/25/2018 FINDINGS: ABDOMEN: Lung Bases: No acute abnormality. Liver: Normal density. No measurable mass. Portal, Superior Mesenteric, and Splenic Veins: Unremarkable. Gallbladder and Biliary Tract: No radiodense calculus or dilation. Pancreas: Normal density, no abnormal calcifications or inflammatory process. Spleen: Normal. Adrenals: No masses seen. Kidneys: Normal size, contour and axis. No radiodense stones or obstructive uropathy. No masses seen. Abdominal Aorta: Abdominal portion non-dilated. Bowel: No obstruction or bowel wall thickening. The appendix is unremarkable. It measures less than 6 mm in diameter. There is air seen within the appendix. No inflammation is seen in or around the a ppendix. There is no evidence of an appendicoliths. The appendix is located in a retrocecal locatio n. Peritoneal Cavity: No ascites, collection or mesenteric inflammatory response. No free air. Lymph Nodes: Within normal limits. Bones: Within normal limits for the patient's age. Soft Tissues: Unremarkable. PELVIS: Bladder: Symmetric distention, no gross wall thickening. Reproductive Organs: There is an IUD present. The left limb of the IUD appears inferiorly displaced. Lymph Nodes: Within normal limits. Bones: Within normal limits for the patient's age. IMPRESSION: 1. No acute abdominal or pelvic process. 2. Normal appendix. 3. No evidence of cholelithiasis, nephrolithiasis or hydronephrosis. 4. The left limb of the IUD appears inferiorly angulated. Nonemergent pelvic ultrasound should be co nsidered to assess positioning of the IUD. RADIATION DOSE DELIVERED: 364.76mGy.cm Total DLP DATA REPOSITORY: All CT scans at this facility are submitted to the National Radiology Data Registry (NRDR) Dose Index Registry (DIR) with the [employer] (ACR). RADIATION OPTIMIZATION: All CT scans at this facility use at least one of these dose optimization te chniques: automated exposure control; mA and/or kV adjustment per patient size (includes targeted exa ms where dose is matched to clinical indication); or iterative reconstruction.
[2025-01-10 17:16] LABS: Bilirubin Negative (Negative); Blood Small (Negative); Clarity Clear (Clear); Glucose Negative (Negative); Ketones Negative (Negative); Leukocyte Esterase Negative (Negative); Nitrite Negative (Negative); Specific Gravity 1.025 (1.005-1.025); Urobilinogen 0.2 mg/dL (Up to 0.2); pH 5.5 (5-8)
[2025-01-10 17:22] LABS: Lactate 0.9 mmol/L (<or=2.0)
[2025-01-10 17:24] LABS: Abs Immature Grans 0.01 10^3/uL (0.0-0.06); Absolute Basophil Count 0.05 10^3/uL (0.0-0.2); Absolute Eosinophil Count 0.06 10^3/uL (0.0-0.7); Absolute Monocyte Count 0.49 10^3/uL (0.1-0.8); Absolute Neutrophil Count 3.66 10^3/uL (1.2-6.7); Basophils % 0.8 %; HCT 38.8 % (36.0-46.0); Immature Grans % 0.2 %; Lymphocytes % 29.7 %; MCH 28.5 pg (27.0-33.0); MCHC 33.5 % (32.0-36.0); MCV 85 fL (80-95); MPV 9.6 fL (8.0-11.0); Monocytes % 8.1 %; Neutrophils % 60.2 %; Platelet Count 305 10^3/uL (130-400); RBC 4.56 10^6/uL (3.93-5.22); RDW 12.4 % (11.7-14.6); RDW-SD 38.1 fL; WBC 6.07 10^3/uL (4.4-10.8)
[2025-01-10 17:26] LABS: Bacteria Moderate HPF (Negative); C & S Indicated? No; Casts Negative LPF (Negative); Crystals Negative HPF (Negative); Epithelial Cells Few HPF (Negative); Mucus Negative (Negative); WBC 0-2 HPF (0-5)
[2025-01-10] MEDS: Normal Saline 1,000 ML 1000 ML IV (17:28)
[2025-01-10] MEDS: Ketorolac 15 MG/ML VIAL IVP (17:29)
[2025-01-10] MEDS: ACETAMINOPHEN 1,000 MG/100 ML BTL 400 MG (17:31)
[2025-01-10 17:44] LABS: ALT 18 U/L (14-59); AST 14 U/L (15-37); Albumin 4.3 g/dL (3.4-5.0); Alkaline Phosphatase 64 U/L (46-116); Anion Gap 8.9 mmol/L (3-11); BUN 19 mg/dL (7-18); Bilirubin, Total 0.6 mg/dL (0.2-1.0); C-Reactive Protein < 0.50 mg/dL (<or=0.5); CO2 29.1 mmol/L (21.0-32.0); Calcium 9.4 mg/dL (8.5-10.1); Chloride 106 mmol/L (98-107); Estimated GFR 81.69 (mL/min/1.73m2); Glucose 85 mg/dL (74-106); Lipase 47 U/L (<78); Potassium 3.5 mmol/L (3.5-5.1); Sodium 144 mmol/L (136-145); Total Protein 7.8 g/dL (6.4-8.2)
[2025-01-10] MEDS: Normal Saline - Diluent 50 ML VIAL IJ (18:17)
[2025-01-10] MEDS: Omnipaque 350 MG/ML 100 ML BTL IJ (18:20)
[2025-01-10 18:34] VITALS: BP 133/84; PULSE 87; RESP 20; TEMP 37.1; O2SAT 100
--- NOTE | 2025-01-10 18:59 | W.ED.GENAD ---
Discharge Plan Disposition Patient Disposition: Home Condition: Stable Discharge Details Clinical Impression: Lower abdominal pain Primary Care Provider: Luisa Crain ED Provider: Tramaine Gonzales Home Meds and New Rx's Prescriptions: Continued albuterol sulfate 90 mcg/actuation HFA aerosol inhaler 2 puff inhalation Q4H PRN (Reason: shortness of breath or wheezing) Qty: 8.5 1RF Kyleena 17.5 mcg/24 hr (5 yrs) 19.5 mg intrauterine device 1 device intrauterine ONCE Rx Instructions: as a single dose (DME) Aerochamber MV Spacer See Rx Instructions .ROUTE .MEDSUPPLY Qty: 1 0RF Rx Instructions: As directed metronidazole 500 mg tablet 500 mg PO BID Qty: 14 0RF Discharge Instructions Instructions: Abdominal Pain, Adult ED Additional Instructions: You were seen in the emergency department for your lower abdominal pain for the past few days. There is no evidence of appendicitis or other emergent surgical problem and your labs showed no evidence of infection, UTI, kidney stone or any other emergent pathology, it is possible that your IUD is slightly angulated and out of place, I spoke with the on-call [employer] tonight they would like you to follow-up with Dr. Key tomorrow in office for decision to possibly remove or replace it at that time, please use therapeutic dosing of Tylenol (acetamenophen) & Advil (ibuprofen) in an alternating fashion as follows: Take 1000mg of Tylenol every 6 hours without missing doses- that is 4 times per day. [facility] in between the Tylenol dosings, take 400-600mg of Advil also on a 6 hour schedule, that is also 4 times per day. The daily maximum dosing of Tylenol is 4000mg, and the daily maximum dosing of Advil is 2400mg. This is safe to do for weeks. Please note that some common cold medications & prescription pain medications may contain acetamenophen and you need to read OTC drug labels and factor that in to maximum daily dosings. Please return for any focal severe increase in abdominal pain especially with fever, intractable nausea or vomiting or any other emergent concerns. Stand Alone Forms: Work Release Referrals: [facility] [Provider Group] Luisa Crain [Primary Care Provider] - Discharge Data Discharge Date/Time-TO BE ENTERED AT DEPARTURE: 01/10/25 20:08 HPI General Date/Time Provider Initiated Documentation: 01/10/25 16:44. HPI Narrative: 24 year-old female presents to ED today by POV/ambulating with a chief complaint of episodic R lower abdominal cramping, like period cramps but worse for the past 4 days- had IUD placed last month- advised to present to ED for U/S but U/S has gone for the day. Quality described as RLQ abdominal tenderness, anorexia, no radiation to nausea/vomiting, black/bloody stools, STI risk, possibility of , flank pain, dysuria, urinary retention, fever. Severity is described as moderate. Palliating factors include nothing specific attempted. Provoking factors include nothing specific. Patient not anticoagulated. Related Data Home Medications ?Medication ?Instructions ?Recorded ?Confirmed inhalational spacing device #1 ea 12/08/19 01/11/25 (Aerochamber MV spacer) albuterol sulfate 90 mcg/actuation 2 puff inhalation Q4H PRN 09/20/24 01/11/25 aerosol inhaler shortness of breath or wheezing #8.5 grams levonorgestrel 17.5 mcg/24 hr (up 1 device intrauterine ONCE 12/22/24 01/10/25 to 5 yrs) 19.5mg intrauterine device (Kyleena) metronidazole 500 mg tablet 500 mg PO BID #14 tabs 01/08/25 01/11/25 Previous Rx's ?Medication ?Instructions ?Recorded inhalational spacing device #1 ea 12/08/19 (Aerochamber MV spacer) albuterol sulfate 90 mcg/actuation 2 puff inhalation Q4H PRN 09/20/24 aerosol inhaler shortness of breath or wheezing #8.5 grams metronidazole 500 mg tablet 500 mg PO BID #14 tabs 01/08/25 Allergies Allergy/AdvReac Type Severity Reaction Status Date / Time pineapple Allergy Intermediate Anaphylaxis Verified 01/11/25 09:07 lactose AdvReac Intermediate Other (See Verified 01/11/25 09:07 Comment) General Stated Complaint: Abd Prob ZAY: 3 Review of Systems All systems reviewed & are unremarkable except as noted in HPI and below Exam Narrative Exam Narrative: GENERAL APPEARANCE: Well-nourished, non-toxic, awake and alert, atraumatic, no acute distress. SKIN: Warm, pink, dry, intact, without rashes/lesions/ulcerations. HEAD: Normocephalic, atraumatic, normal hair distribution for gender/age. EYES: Normal conjunctiva, no exudates on lids/lashes. ENT: Nares patent, no circumoral cyanosis, no facial swelling NECK: Supple, trachea midline, painless cervical ROM. LUNGS/CHEST: Lungs CTA bilaterally, non-labored respirations, normal A/P diameter, symmetrical expansion, no chest wall deformity HEART (CV/PV): Regular rate and rhythm without murmur, no peripheral edema, no JVD. ABDOMEN: Soft, non-distended, no guarding, exquisite tenderness at McBurney's point, negative White sign, no Rovsing's, no CVA tenderness percussion bilaterally. Pelvic exam deferred to [employer] provider tomorrow at close follow-up MSK: Normal ROM, no swelling/deformity to bilateral UEs or LEs, moving all extremities without weakness, no cyanosis, spine midline without tenderness, normal curvature. NEURO: Mental Status AAOx4 - alert to person, place, time, events No facial droop, no forehead involvement. Motor: No focal weakness - strength 5/5 in bilateral UEs and LEs, proximal and distal, symmetric. Sensory: sensation intact to light touch globally. Gait normal: patient ambulated without ataxia into ED room. PSYCH: euthymic, cooperative, pleasant, appropriate speech Course Vital Signs Vital signs: Vital Signs Temperature 36.4 C L 01/10/25 16:39 Pulse 86 01/10/25 16:39 Respiratory Rate 20 01/10/25 16:39 Blood Pressure 169/105 H 01/10/25 16:39 Pulse Oximetry 94 01/10/25 16:39 Temperature 37.1 C 01/10/25 18:34 Temperature Source Oral 01/10/25 18:34 Pulse 87 01/10/25 18:34 Respiratory Rate 20 01/10/25 18:34 Blood Pressure 133/84 01/10/25 18:34 Blood Pressure Mean 100 01/10/25 18:34 Blood Pressure Position Sitting 01/10/25 16:41 Pulse Oximetry 100 01/10/25 18:34 Oxygen Delivery Method Room Air 01/10/25 18:34 Oxygen Flow Rate 0 01/10/25 18:34 Pain Level 8 01/10/25 17:29 Lab/Test Results Lab/Test Results: Laboratory Tests Range/Units 01/10/25 01/10/25 17:08 17:17 WBC (4.4-10.8) 10^3/uL 6.07 RBC (3.93-5.22) 10^6/uL 4.56 Hgb (11.2-15.7) g/dL 13.0 Hct (36.0-46.0) % 38.8 MCV (80-95) fL 85 MCH (27.0-33.0) pg 28.5 MCHC (32.0-36.0) % 33.5 RDW (11.7-14.6) % 12.4 Plt Count (130-400) 10^3/uL 305 MPV (8.0-11.0) fL 9.6 Immature Gran % % 0.2 Neutrophils % % 60.2 Lymphocytes % % 29.7 Monocytes % % 8.1 Eosinophils % % 1.0 Basophils % % 0.8 Nucleated RBC % (0.0-0.3) % 0.0 Absolute Neutrophils (1.2-6.7) 10^3/uL 3.66 Absolute Lymphocytes (1.2-3.4) 10^3/uL 1.80 Absolute Monocytes (0.1-0.8) 10^3/uL 0.49 Absolute Eosinophils (0.0-0.7) 10^3/uL 0.06 Absolute Basophils (0.0-0.2) 10^3/uL 0.05 VBG Lactate (<or=2.0) mmol/L 0.9 Sodium (136-145) mmol/L 144 Potassium (3.5-5.1) mmol/L 3.5 Chloride (98-107) mmol/L 106 Carbon Dioxide (21.0-32.0) mmol/L 29.1 Anion Gap (3-11) mmol/L 8.9 BUN (7-18) mg/dL 19 H Creatinine (0.55-1.02) mg/dL 1.0 Est GFR (CKD-EPI 2020) (mL/min/1.73m2) 81.69 Glucose (74-106) mg/dL 85 Calcium (8.5-10.1) mg/dL 9.4 Total Bilirubin (0.2-1.0) mg/dL 0.6 AST (15-37) U/L 14 L ALT (14-59) U/L 18 Alkaline Phosphatase (46-116) U/L 64 C-Reactive Protein (<or=0.5) mg/dL < 0.50 Total Protein (6.4-8.2) g/dL 7.8 Albumin (3.4-5.0) g/dL 4.3 Lipase (<78) U/L 47 Urine Color (Yellow) Yellow Urine Clarity (Clear) Clear Urine pH (5-8) 5.5 Ur Specific [place] (1.005-1.025) 1.025 Urine Protein (Neg-Trace) mg/dL Negative Urine Ketones (Negative) mg/dL Negative Urine Blood (Negative) Small H Urine Nitrite (Negative) Negative Urine Bilirubin (Negative) Negative Urine Urobilinogen (Up to 0.2) mg/dL 0.2 Ur Leukocyte Esterase (Negative) Negative Urine RBC (0-2) HPF 3-5 H Urine WBC (0-5) HPF 0-2 Ur Epithelial Cells (Negative) HPF Few Urine Crystals (Negative) HPF Negative Urine Bacteria (Negative) HPF Moderate Urine Casts (Negative) LPF Negative Urine Mucus (Negative) Negative Ur Culture Indicated? No Urine Glucose (Negative) mg/dL Negative POC- Test(urine) Negative Medical Decision Making This dictation utilizes [id number] dictation software and may contain unedited grammatical errors. 24 year-old female presents to ED today by POV/ambulating with a chief complaint of episodic R lower abdominal cramping, like period cramps but worse for the past 4 days- had IUD placed last month- advised to present to ED for U/S but U/S has gone for the day. Quality described as RLQ abdominal tenderness, anorexia, no radiation to nausea/vomiting, black/bloody stools, STI risk, possibility of , flank pain, dysuria, urinary retention, fever. Severity is described as moderate. Palliating factors include nothing specific attempted. Provoking factors include nothing specific. Patients' medical history: Noncontributory. Family and social history: Noncontributory. Pertinent exam findings / vital signs include right lower quadrant abdominal tenderness at McBurney's point with rebound tenderness, negative White sign, no Rovsing's, no CVA tenderness percussion bilaterally, nontoxic and afebrile. Differential / pathologies of concern include appendicitis, migration of IUD device, cervicitis, ovarian cyst, less likely tubo-ovarian abscess. Diagnostic studies of: - CBC, CMP, lactate, CRP, lipase, UA, CT ABD/pelvis with contrast. - CBC shows no leukocytosis, no left shift - Lactate negative - CMP shows no actionable abnormality - CRP negative - Lipase within normal limits - UA shows no evidence of UTI - CT shows no acute pathology, no appendicitis, no ovarian cyst or abscess, no mass seen in this area, shows the left limb of the IUD as inferiorly angulated, discussed with OB and they will follow-up in office Interventions of: - Tylenol, Toradol, IV fluids. ED Course/Assessment/Plan: 24-year-old female presents with right lower quadrant abdominal pain, had an IUD placement last month, was concerned for appendicitis based on her 4-day onset with some mild anorexia and the location of her pain, there is no evidence of severe infection she is definitely not ruptured or perforated in her vagina or viscus, the IUD appears inferior angulated on CT, there is no ovarian pathology seen, counseled on follow-up with her OB office in the morning for consultation to possibly remove or replace her IUD, strict return to the ED for any developing fever, severe increase in pain. Findings not consistent with tubo-ovarian abscess, ovarian cyst, appendicitis, acute surgical abdomen. Disposition of lower abdominal pain. Patient verbalized understanding of the plan and return to ED criteria and engaged in shared decision making. Medical Records Medical records reviewed: Yes I reviewed the patient's medical records. Imaging Data Radiologic Study: Attestation: I personally reviewed and interpreted this imaging study as follows: Imaging: CT Scan Radiologist's impression: EXAM: CT ABDOMEN PELVIS W CLINICAL HISTORY: RLQ tenderness TECHNIQUE: Imaging Protocol: Axial computed tomography images with coronal and sagittal reformatted images were created and reviewed. CONTRAST MATERIAL: Intravenous: Omnipaque 350 Contrast volume:75 mL Oral: No COMPARISON: US US ABDOMEN from 11/25/2018 FINDINGS: ABDOMEN: Lung Bases: No acute abnormality. Liver: Normal density. No measurable mass. Portal, Superior Mesenteric, and Splenic Veins: Unremarkable. Gallbladder and Biliary Tract: No radiodense calculus or dilation. Pancreas: Normal density, no abnormal calcifications or inflammatory process. Spleen: Normal. Adrenals: No masses seen. Kidneys: Normal size, contour and axis. No radiodense stones or obstructive uropathy. No masses seen. Abdominal Aorta: Abdominal portion non-dilated. Bowel: No obstruction or bowel wall thickening. The appendix is unremarkable. It measures less than 6 mm in diameter. There is air seen within the appendix. No inflammation is seen in or around the appendix. There is no evidence of an appendicoliths. The appendix is located in a retrocecal location. Peritoneal Cavity: No ascites, collection or mesenteric inflammatory response. No free air. Lymph Nodes: Within normal limits. Bones: Within normal limits for the patient's age. Soft Tissues: Unremarkable. PELVIS: Bladder: Symmetric distention, no gross wall thickening. Reproductive Organs: There is an IUD present. The left limb of the IUD appears inferiorly displaced. Lymph Nodes: Within normal limits. Bones: Within normal limits for the patient's age. IMPRESSION: 1. No acute abdominal or pelvic process. 2. Normal appendix. 3. No evidence of cholelithiasis, nephrolithiasis or hydronephrosis. 4. The left limb of the IUD appears inferiorly angulated. Nonemergent pelvic ultrasound should be considered to assess positioning of the IUD. Lab Data Lab results reviewed: Yes I reviewed the patient's lab results. Labs: Laboratory Tests Range/Units 01/10/25 01/10/25 17:08 17:17 WBC (4.4-10.8) 10^3/uL 6.07 RBC (3.93-5.22) 10^6/uL 4.56 Hgb (11.2-15.7) g/dL 13.0 Hct (36.0-46.0) % 38.8 MCV (80-95) fL 85 MCH (27.0-33.0) pg 28.5 MCHC (32.0-36.0) % 33.5 RDW (11.7-14.6) % 12.4 Plt Count (130-400) 10^3/uL 305 MPV (8.0-11.0) fL 9.6 Immature Gran % % 0.2 Neutrophils % % 60.2 Lymphocytes % % 29.7 Monocytes % % 8.1 Eosinophils % % 1.0 Basophils % % 0.8 Nucleated RBC % (0.0-0.3) % 0.0 Absolute Neutrophils (1.2-6.7) 10^3/uL 3.66 Absolute Lymphocytes (1.2-3.4) 10^3/uL 1.80 Absolute Monocytes (0.1-0.8) 10^3/uL 0.49 Absolute Eosinophils (0.0-0.7) 10^3/uL 0.06 Absolute Basophils (0.0-0.2) 10^3/uL 0.05 VBG Lactate (<or=2.0) mmol/L 0.9 Sodium (136-145) mmol/L 144 Potassium (3.5-5.1) mmol/L 3.5 Chloride (98-107) mmol/L 106 Carbon Dioxide (21.0-32.0) mmol/L 29.1 Anion Gap (3-11) mmol/L 8.9 BUN (7-18) mg/dL 19 H Creatinine (0.55-1.02) mg/dL 1.0 Est GFR (CKD-EPI 2020) (mL/min/1.73m2) 81.69 Glucose (74-106) mg/dL 85 Calcium (8.5-10.1) mg/dL 9.4 Total Bilirubin (0.2-1.0) mg/dL 0.6 AST (15-37) U/L 14 L ALT (14-59) U/L 18 Alkaline Phosphatase (46-116) U/L 64 C-Reactive Protein (<or=0.5) mg/dL < 0.50 Total Protein (6.4-8.2) g/dL 7.8 Albumin (3.4-5.0) g/dL 4.3 Lipase (<78) U/L 47 Urine Color (Yellow) Yellow Urine Clarity (Clear) Clear Urine pH (5-8) 5.5 Ur Specific [place] (1.005-1.025) 1.025 Urine Protein (Neg-Trace) mg/dL Negative Urine Ketones (Negative) mg/dL Negative Urine Blood (Negative) Small H Urine Nitrite (Negative) Negative Urine Bilirubin (Negative) Negative Urine Urobilinogen (Up to 0.2) mg/dL 0.2 Ur Leukocyte Esterase (Negative) Negative Urine RBC (0-2) HPF 3-5 H Urine WBC (0-5) HPF 0-2 Ur Epithelial Cells (Negative) HPF Few Urine Crystals (Negative) HPF Negative Urine Bacteria (Negative) HPF Moderate Urine Casts (Negative) LPF Negative Urine Mucus (Negative) Negative Ur Culture Indicated? No Urine Glucose (Negative) mg/dL Negative Quality:SDOH Health Related Social Needs: No Data to Display PFSH All Active Problems (Updated 01/11/25 @ 09:50 by Gosia Martin MD) Anxiety (Chronic) Seasonal and perennial allergic rhinitis (Acute) Mild intermittent asthma (Chronic) Right bundle branch block (RBBB) determined by electrocardiography (Chronic) had eval with [facility] [place]- no medication, no activity restriction; follow up as needed Scoliosis (Chronic 08/25/17) Seen by uvm 08/29. Minimal risk of progression. f/u in 1 year Medical History Presence of Kyleena IUD Placed for contraception 12/22/24 - removed 01/11/25 due to pelvic pain and suspected malposition on CT. Surgical History Plica, left knee Family History Father Essential hypertension just had stent placed Asthma untreated Mother Alcohol abuse Depression Other Lupus (systemic lupus erythematosus) MGaunt Diabetes MGaunt, MGGM Essential hypertension PGF Depression MGM, MGaunt Heart disease PGF, MGF Neoplasm both sides Brother Depression has symptoms of bipolar but never dx Other Healthy adult on routine physical examination Social History Smoking/Tobacco Use Status: Never Smoking risk assessment performed?: Yes Alcohol Intake: never Drug use: Never Substance use type: does not use Household members: family Education Level: college Details: Sophomore [employer] 2021 studying [employer] and living at home Do you need help understanding health information?: Never Pets and animals: Yes Pets and animals: cat(s) and farm animals Sexually active: Yes Do you think of yourself as: straight/heterosexual Current gender identity: female Seatbelt use: always Helmet use: Yes Drive intox or ride w/intox cement mixer driver: No Do you feel safe at home: Yes Do you feel safe in your relationship?: Yes Additional Social history: Working at [employer] Female Reproductive History Menstrual control method: none (Patient stats she is not sexually active ) History History 0 Para Hx # Term Pregnancies Multiple births Hx # Pregnancies Ectopic pregnancies AB induced Hx Number of Living Children AB spontaneous PAWSS Have you Been Recently Intoxicated or Drunk Within the Last 30 days?: No Have you Ever Experienced Previous Episodes of Alcohol Withdrawal?: No Have you ever Experienced Withdrawal Seizures?: No Have you ever Experienced Delirium Tremens(DT)s?: No Have you ever undergone Alcohol Rehabilitation Treatment (i.e, inpt ot outpatient treatment programs)?: No Have you ever Experienced Blackouts?: No Have you ever Combined Alcohol with other Downers within the last 90 days?: No Have you ever Combined Alcohol with any other Substance of Abuse during the last 90 days?: No Positive Blood Alcohol level on Presentation? [PCS.BAL]: No Evidence of Increased Autonomic Activity (i.e. HR>120, tremor, sweating, agitation, nausea)?: No Result: 0
[2025-01-10 19:19] VITALS: BP 115/80; PULSE 68; RESP 14; O2SAT 100
== END 2025-01-10 20:08 | disposition home or self-care (01) ==
PROVIDERS: Emergency Provider Physician Assistant; PCP Nurse Practitioner Family
DX: R10.31 Right lower quadrant pain (principal); Z97.5 Presence of (intrauterine) contraceptive device
CPT/HCPCS: 36415; 80053; 81025; 83690; 96361; 96374; 99285; 74177; 81003; 81015; 83605; 85025; 86140; J0131; J1885; J3490

== ENCOUNTER 2025-03-26 19:31 | Outpatient (REF) | payer MEDICAID, SELFPAY | END 2025-03-26 19:32 | disposition home or self-care (01) | LOC: LBN 19:31 | PROVIDERS: PCP Nurse Practitioner Family; Visit Provider Physician Assistant | DX: N39.0 Urinary tract infection, site not specified (principal) | CPT/HCPCS: 87077; 87086; 87186 ==

== ENCOUNTER 2025-08-15 16:18 | Outpatient (REF) | payer BC, SELFPAY ==
[2025-08-15 21:03] LABS: Anion Gap 9.4 mmol/L (3-11); BUN 16 mg/dL (9-23); CO2 25.6 mmol/L (20.0-31.0); Calcium 9.8 mg/dL (8.3-10.6); Chloride 105 mmol/L (98-107); Glucose 85 mg/dL (74-106); Potassium 3.9 mmol/L (3.5-5.1); Sodium 140 mmol/L (136-145)
== END 2025-08-15 16:19 | disposition home or self-care (01) ==
LOC: NCHCN 16:18
PROVIDERS: PCP Nurse Practitioner Family; Visit Provider Nurse Practitioner Family
DX: L70.9 Acne, unspecified (principal)
CPT/HCPCS: 80048